=== PATIENT | male | born 1955 | race Caucasian/White ===

== ENCOUNTER 2017-06-18 12:07 | Inpatient (IN) | payer SELFPAY ==
[2017-06-18] VITALS (15 sets, daily range): BP systolic 96–143; BP diastolic 52–78; PULSE 85–110; RESP 6–30; TEMP 91.2–99.1; O2SAT 93–100
[~2017-06-18] VITALS: Ht 182.9 cm; Wt 77.3 kg
[2017-06-18] MEDS ORDERED: PROPOFOL 500 MG/50 ML INJ 50 ML ONE (12:11)
[2017-06-18] MEDS ORDERED: SODIUM CHLOR 0.9% 1000 ML INJ 1,000 ML IV SCH ×2 (12:17→12:26)
[2017-06-18] MEDS ORDERED: SODIUM PHOSPHATE INJ 15 MMOL in SODIUM CHLORIDE 0.9% INJ 100 ML IV PRN (12:30)
[2017-06-18] MEDS ORDERED: PROPOFOL 1000 MG/100 ML INJ 100 ML IV PRN ×2 (12:30→14:00)
[2017-06-18] MEDS ORDERED: POTASSIUM CHLOR 40 MEQ PREMIX 100 ML IV PRN (12:30)
[2017-06-18] MEDS ORDERED: SODIUM BICARBONATE 8.4% SOLN 50 MEQ/50 ML VIAL IV PUSH PRN ×2 (12:30)
[2017-06-18] MEDS ORDERED: ETOMIDATE 20 MG/10 ML VIAL IV PUSH ONE (12:30)
[2017-06-18] MEDS ORDERED: SODIUM CHLORIDE 0.9% FLUSH 10 ML FLUSH IV FLUSH PRN ×3 (12:30→17:00)
[2017-06-18] MEDS ORDERED: INSULIN HUMAN REGULAR 1,000 UNITS/10 ML VIAL IV PUSH ONE (12:30)
[2017-06-18] MEDS ORDERED: SUCCINYLCHOLINE CHLORIDE 100 MG/5 ML SYRINGE IV PUSH ONE (12:30)
[2017-06-18] MEDS ORDERED: SODIUM CHLOR 0.9% 1000 ML INJ 1,000 ML IV ONE (12:30)
[2017-06-18] MEDS ORDERED: POTASSIUM CHLOR 20 MEQ PREMIX 100 ML IV PRN ×6 (12:30)
--- NOTE | 2017-06-18 12:37 | PD ---
HPI Chief Complaint: Altered Mental Status Time Seen by Provider: 12:17 Travel History International Travel<30 days: No Contact w/Intl Traveler<30days: No Traveled to known affect area: No History of Present Illness HPI 62-year-old male was brought to the emergency room by EMS after he was found unresponsive this morning by his friend in the hotel room. Patient is from out of town and is here for the bike week. He has history of diabetes. When EMS arrived and checked his blood sugar the meter read high. They brought him unresponsive with GCS of 3. Vital signs were otherwise stable. Patient was in no condition to give any meaningful history. The bedside blood sugar in the emergency room read high as well. There is no family or friend currently with the patient. He was last seen normal last night. No known history of abnormal alcohol intake or illicit drugs. [facility] Past Medical History Narrative Medical List of his past medical, surgical, social and family history reviewed from the nursing note. Social History Tobacco Use: Yes Allergies-Medications (Allergen,Severity, Reaction): Coded Allergies: No Allergy Information Available (Unverified , 06/18/17) Comments Unknown Narrative Medication Unknown Review of Systems ROS Limitations: Unresponsive Except as stated in HPI: all other systems reviewed are Neg Physical Exam Exam Limitations: Altered Mental Status Narrative GENERAL: Unresponsive, significant SKIN: Focused skin assessment warm/dry. HEAD: Atraumatic. Normocephalic. EYES: Pupils equal and round, 4 mm equal and reactive to light. No scleral icterus. No injection or drainage. ENT: No nasal bleeding or discharge. Dry mucous membrane and tongue NECK: Trachea midline. No JVD. CARDIOVASCULAR: Regular rate and rhythm. No murmur appreciated. RESPIRATORY: No accessory muscle use. Tachypneic. Clear to auscultation. Breath sounds equal bilaterally. GASTROINTESTINAL: Abdomen soft, non-tender, nondistended. Hepatic and splenic margins not palpable. MUSCULOSKELETAL: No obvious deformities. No clubbing. No cyanosis. No edema. NEUROLOGICAL: GCS of 3 PSYCHIATRIC: Unable to assess Data Data Last Documented VS Orders Orders Propofol 500 Mg/50 Ml Inj (Diprivan 500 (06/18/17 12:11) Electrocardiogram (06/18/17 12:17) Ammonia (06/18/17 12:17) Complete Blood Count With Diff (06/18/17 12:17) Comprehensive Metabolic Panel (06/18/17 12:17) Creatine Kinase (Cpk) (06/18/17 12:17) Prothrombin Time / Inr (Pt) (06/18/17 12:17) Troponin I (06/18/17 12:17) Thyroid Stimulating Hormone (06/18/17 12:17) Urinalysis - C+S If Indicated (06/18/17 12:17) Lactic Acid Sepsis Protocol (06/18/17 12:17) Arterial Blood Gas (Abg) (06/18/17 12:17) Blood Culture (06/18/17 12:17) Chest, Single Ap (06/18/17 12:17) Ct Brain W/O Iv Contrast(Rout) (06/18/17 12:17) Blood Glucose (06/18/17 12:17) Ecg Monitoring (06/18/17 12:17) Iv Access Insert/Monitor (06/18/17 12:17) Oximetry (06/18/17 12:17) Sodium Chloride 0.9% Flush (Ns Flush) (06/18/17 12:30) Sodium Chlor 0.9% 1000 Ml Inj (Ns 1000 M (06/18/17 12:17) Drug Screen, Random Urine (06/18/17 12:17) Alcohol (Ethanol) (06/18/17 12:17) Tylenol (Acetaminophen) (06/18/17 12:17) Salicylates (Aspirin) (06/18/17 12:17) Sodium Chlor 0.9% 1000 Ml Inj (Ns 1000 M (06/18/17 12:30) Blood Gas Venous (Vbg) (06/18/17 12:17) Insulin Human Regular Inj (Novolin R Inj (06/18/17 12:30) Urinary Catheter Insert/Apply (06/18/17 12:19) ^ Orogastric Tube (06/18/17 12:19) Succinylcholine Inj (Quelicin Inj) (06/18/17 12:30) Etomidate Inj (Amidate Inj) (06/18/17 12:30) Propofol 1000 Mg/100 Ml Inj (Diprivan 10 (06/18/17 12:30) Insert Temp Sensing Thomson Cath (06/18/17 12:26) Childcare Administrator / Telemetry [id number] (06/18/17 12:26) ^ Insert Iv (06/18/17 12:26) Diet Npo (06/18/17 Lunch) Sodium Chlor 0.9% 1000 Ml Inj (Ns 1000 M (06/18/17 12:26) Sodium Chlor 0.9% 1000 Ml Inj (Ns 1000 M (06/18/17 12:26) Dext 5%-Nacl 0.9% 1000 Ml Inj (D5w-Ns 10 (06/18/17 12:26) Insulin Regular (Iv Infusion) (Novolin R (06/18/17 13:00) Potassium Chlor 40 Meq Premix (Kcl 40 Me (06/18/17 12:30) Potassium Chlor 40 Meq Premix (Kcl 40 Me (06/18/17 12:30) Potassium Chlor 20 Meq Premix (Kcl 20 Me (06/18/17 12:30) Potassium Chlor 20 Meq Premix (Kcl 20 Me (06/18/17 12:30) Potassium Chlor 20 Meq Premix (Kcl 20 Me (06/18/17 12:30) Potassium Chlor 20 Meq Premix (Kcl 20 Me (06/18/17 12:30) Potassium Chlor 20 Meq Premix (Kcl 20 Me (06/18/17 12:30) Potassium Chlor 20 Meq Premix (Kcl 20 Me (06/18/17 12:30) Sodium Bicarbonate 8.4% Inj (Sodium Bica (06/18/17 12:30) Sodium Bicarbonate 8.4% Inj (Sodium Bica (06/18/17 12:30) Hemoglobin (Hgb) A1c (06/18/17 12:26) Basic Metabolic Panel (Bmp) (06/18/17 17:26) Basic Metabolic Panel (Bmp) (06/18/17 23:26) Basic Metabolic Panel (Bmp) (06/19/17 05:26) Basic Metabolic Panel (Bmp) (06/19/17 11:26) Magnesium (Mg) (06/18/17 17:26) Magnesium (Mg) (06/18/17 23:26) Magnesium (Mg) (06/19/17 05:26) Magnesium (Mg) (06/19/17 11:26) Phosphorus (Po4) (06/18/17 17:26) Phosphorus (Po4) (06/18/17 23:26) Phosphorus (Po4) (06/19/17 05:26) Phosphorus (Po4) (06/19/17 11:26) Beta Hydroxybutyrate (Acetone) (06/18/17 23:26) Beta Hydroxybutyrate (Acetone) (06/19/17 11:26) Admit Order (Ed Use Only) (06/18/17 12:37) Protein Corrected Calcium(Pcc) (06/18/17 15:05) Labs Laboratory Tests Test 06/18/17 12:15 06/18/17 12:25 Blood Gas Puncture Site IV Blood Gas Patient Temperature 98.6 Blood Gas HCO3 3 mmol/L Blood Gas Base Excess -29.0 mmol/L Blood Gas Oxygen Saturation 85 % Arterial Blood pH 6.71 Arterial Blood Partial Pressure CO2 22 mmHg Arterial Blood Partial Pressure O2 72 mmHG Arterial Blood Oxygen Content 17.9 Vol % Arterial Blood Carboxyhemoglobin 0.9 % Arterial Blood Methemoglobin 1.3 % Venous Blood pH 6.71 Venous Blood Partial Pressure CO2 22 mmHg Venous Blood Partial Pressure O2 72 mmHg Venous Blood HCO3 3 mmol/L Venous Blood Oxygen Saturation 85 % Venous Blood Oxygen Content 17.9 Vol % Venous Blood Base Excess -29.0 mmol/L Blood Gas Hemoglobin 15.0 G/DL Oxygen Delivery Device BiPAP Blood Gas Liter Flow 15 L/M Blood Gas Ventilator Setting NR White Blood Count 41.0 TH/MM3 Red Blood Count 4.31 MIL/MM3 Hemoglobin 14.2 GM/DL Hematocrit 49.2 % Mean Corpuscular Volume 114.0 FL Mean Corpuscular Hemoglobin 32.9 PG Mean Corpuscular Hemoglobin Concent 28.9 % Red Cell Distribution Width 14.1 % Platelet Count 503 TH/MM3 Mean Platelet Volume 7.8 FL Neutrophils (%) (Auto) 74.8 % Lymphocytes (%) (Auto) 19.5 % Monocytes (%) (Auto) 5.0 % Eosinophils (%) (Auto) 0.3 % Basophils (%) (Auto) 0.4 % Neutrophils # (Auto) 30.6 TH/MM3 Lymphocytes # (Auto) 8.0 TH/MM3 Monocytes # (Auto) 2.0 TH/MM3 Eosinophils # (Auto) 0.1 TH/MM3 Basophils # (Auto) 0.2 TH/MM3 CBC Comment AUTO DIFF Differential Total Cells Counted 100 Neutrophils % (Manual) 68 % Band Neutrophils % 8 % Lymphocytes % 12 % Monocytes % 9 % Eosinophils % 2 % Basophils % 1 % Neutrophils # (Manual) 31.2 TH/MM3 Differential Comment FINAL DIFF MANUAL Platelet Estimate HIGH Platelet Morphology Comment NORMAL Prothrombin Time 11.4 SEC Prothromb Time International Ratio 1.1 RATIO Urine Color LIGHT-YELLOW Urine Turbidity CLEAR Urine pH 5.0 Urine Specific [place] 1.022 Urine Protein 30 mg/dL Urine Glucose (UA) 1000 mg/dL Urine Ketones 150 mg/dL Urine Occult Blood SMALL Urine Nitrite NEG Urine Bilirubin NEG Urine Urobilinogen LESS THAN 2.0 MG/DL Urine Leukocyte Esterase NEG Urine RBC 1 /hpf Urine WBC 1 /hpf Urine Bacteria RARE /hpf Urine Mucus FEW /lpf Microscopic Urinalysis Comment CATH-CULTURE IND Urine Random Creatinine 18.7 MG/DL Urine Random Sodium 45 MEQ/L Blood Urea Nitrogen 44 MG/DL Creatinine 2.46 MG/DL Random Glucose 1165 MG/DL Total Protein 6.9 GM/DL Albumin 3.9 GM/DL Calcium Level 8.0 MG/DL Alkaline Phosphatase 164 U/L Aspartate Amino Transf (AST/SGOT) 39 U/L Alanine Aminotransferase (ALT/SGPT) 56 U/L Total Bilirubin 0.4 MG/DL Sodium Level 127 MEQ/L Potassium Level 6.3 MEQ/L Chloride Level 89 MEQ/L Carbon Dioxide Level LESS THAN 5.0 MEQ/L Anion Gap 33 MEQ/L Estimat Glomerular Filtration Rate 27 ML/MIN Lactic Acid Level 4.5 mmol/L Ammonia 161 MCMOL/L Total Creatine Kinase 273 U/L Troponin I 0.04 NG/ML Thyroid Stimulating Hormone 3rd Gen 1.090 uIU/ML Salicylates Level 5.9 MG/DL Urine Opiates Screen NEG Acetaminophen Level LESS THAN 2.0 MCG/ML Urine Barbiturates Screen NEG Urine Amphetamines Screen NEG Urine Benzodiazepines Screen NEG Urine Cocaine Screen NEG Urine Cannabinoids Screen NEG Ethyl Alcohol Level LESS THAN 3 MG/DL B-Hydroxybutyrate 14.74 MMOL/L MDM Medical Decision Making Medical Screen Exam Complete: Yes Emergency Medical Condition: Yes Medical Record Reviewed: Yes Interpretation(s) Twelve-lead EKG was reviewed by me. Normal sinus rhythm, normal axis, intraventricular conduction delay, motion artifact. Heart rate of 86 bpm. Differential Diagnosis DKA with metabolic encephalopathy, intracranial bleed, metabolic encephalopathy Narrative Course 12:34 PM patient was intubated as per my decision. Please refer to my procedure note. Patient tolerated the intubation well. There was a VBG ordered immediately which showed significant metabolic acidosis with bicarb of 3. Besides giving patient IV fluid bolus and 10 units of regular insulin bolus I have ordered insulin drip and bicarb drip as per the DKA protocol. Patient will need to go to the ICU. Awaiting for the document improvement specialist to call back. 12:58 PM CBC shows significant leukocytosis. Based on that I have added Zosyn and vancomycin for possible sepsis. I just discussed over the phone his condition with patient's sister Yesenia. I have informed her patient's current condition being critical and diabetic coma. I discussed the case with the document improvement specialist was accepted the patient. Patient is over at CT scan a right now. As per the sister patient drinks a lot of alcohol. Chest x-ray has been reported as ET tube to be in good position. 1:25 PM awaiting for the bicarb drip to be started. Meanwhile ABG shows significant metabolic acidosis still with pH of 6.7. I have ordered 2 Amps of bicarb bolus at this point. Critical Care Narrative Aggregate critical care time was 60 minutes. Time to perform other separately billable procedures was not included in the critical care time. My time did not include minutes spent treating any other patients simultaneously or on activities that did not directly contribute to the patient's treatment. The services I provided to this patient were to treat and/or prevent clinically significant deterioration that could result in: Unresponsive, DKA, diabetic coma, sepsis, sepsis protocol, ventilator management I provided critical care services requiring my management, as noted below: Chart data review, documentation time, medication orders and management, vital sign assessments/reviewing monitor data, ordering and reviewing lab tests, ordering and interpreting/reviewing x-rays and diagnostic studies, care of the patient and discussion of the patient with the admitting physicians. Procedures Procedure Narrative After the risks and benefits were discussed the following procedure was performed: INTUBATION: The patient was put in optimal position for the procedure. Rapid sequence intubation was initiated by me using 20 milligrams of etomidate IV and 100 milligrams of succinylcholine IV. The patient was intubated with a 7.5 cuffed endotracheal tube. Tube placement was confirmed by visualization of the tube and balloon passing through the cords, capnometry and subsequent chest x-ray. Breath sounds were equal and well aerated bilaterally postintubation. No breath sounds over stomach. Patient tolerated procedure well. EKG Prior to Arrival: No Physician Communication Physician Communication Dr. Shields Diagnosis Primary Impression: Diabetic coma Additional Impressions: Sepsis Qualified Codes: A41.9 - Sepsis, unspecified organism Respiratory failure Qualified Codes: J96.00 - Acute respiratory failure, unspecified whether with hypoxia or hypercapnia Metabolic acidosis DKA (diabetic ketoacidoses) Qualified Codes: E10.11 - Type 1 diabetes mellitus with ketoacidosis with coma Admitting Information Admitting Physician Requests: it Guy Poole MD Jun 18, 2017 12:37
[2017-06-18 12:42] LABS: AUTOMATED NEUTROPHIL # 30.6 TH/MM3 (1.8-7.7); BASOPHIL # 0.2 TH/MM3 (0-0.2); BASOPHIL % 0.4 % (0.0-2.0); EOSINOPHIL # 0.1 TH/MM3 (0-0.4); EOSINOPHIL % 0.3 % (0.0-4.0); HEMATOCRIT 49.2 % (39.0-51.0); HEMOGLOBIN 14.2 GM/DL (13.0-17.0); LYMPH % 19.5 % (9.0-44.0); MEAN CORPUSCULAR HEMOGLOBIN 32.9 PG (27.0-34.0); MEAN PLATELET VOLUME 7.8 FL (7.0-11.0); NEUT % 74.8 % (16.0-70.0); PLATELET COUNT 503 TH/MM3 (150-450); RED BLOOD COUNT 4.31 MIL/MM3 (4.50-5.90); RED CELL DISTRIBUTION WIDTH 14.1 % (11.6-17.2)
[2017-06-18 12:43] LABS: MEAN CORPUSCULAR HGB CONC 28.9 % (32.0-36.0)
--- NOTE | 2017-06-18 12:46 | RADRPT ---
EXAM DATE/TIME: 06/18/2017 12:30 [facility] COMPARISON: No previous studies available for comparison. INDICATIONS : Post intubation MEDICAL HISTORY : Non - responsive SURGICAL HISTORY : Non-responsive ENCOUNTER: Initial ACUITY: 1 day PAIN SCORE: Non-responsive. LOCATION: chest FINDINGS: The endotracheal tube in satisfactory position. There is a nasogastric tube present. No pneumothorax is seen. The lungs are clear. The visualized osseous structures are intact. CONCLUSION: 1. ET tube and NG tube in good position. Kushal Aggarwal MD on June 18, 2017 at 12:43 Board Certified Radiologist. This report was verified electronically.
[2017-06-18] MEDS: SODIUM CHLOR 0.9% 1000 ML INJ 1,000 ML IV SCH ×2 (12:50→13:26)
[2017-06-18 12:52] LABS: INTERNATIONAL NORMALIZED RATIO 1.1 RATIO; PROTHROMBIN TIME - PATIENT 11.4 SEC (9.8-11.6)
[2017-06-18] MEDS ORDERED: PIPERACIL-TAZO 4.5 GM PREMIX 100 ML IV ONE (13:00)
[2017-06-18] MEDS ORDERED: VANCOMYCIN INJ 1,000 MG in SODIUM CHLOR 0.9% 250 ML INJ 250 ML IV ONE (13:00)
[2017-06-18 13:04] LABS: BANDS 8 % (0-6); BASOPHILS 1 % (0-2); LYMPHOCYTES 12 % (9-44); MONOCYTES 9 % (0-8); NEUTROPHIL # MANUAL DIFF 31.2 TH/MM3 (1.8-7.7); POLYS (SEG NEUTROPHILS) 68 % (16-70)
[2017-06-18 13:09] LABS: BACTERIA, URINE RARE /hpf; BILIRUBIN, URINE NEG (NEG); BLOOD, URINE SMALL (NEG); GLUCOSE,URINE 1000 mg/dL (NEG); KETONE, URINE 150 mg/dL (NEG); MUCUS URINE FEW /lpf (OCC); NITRITE,URINE NEG (NEG); URINE COLOR LIGHT-YELLOW (YELLW/STRAW); URINE LEUKOCYTE ESTERASE NEG (NEG)
--- NOTE | 2017-06-18 13:10 | RADRPT ---
EXAM DATE/TIME: 06/18/2017 12:58 [facility] COMPARISON: No previous studies available for comparison. INDICATIONS : Found unresponsive. RADIATION DOSE: 56.35 CTDIvol (mGy) MEDICAL HISTORY : Diabetes mellitus type 2. SURGICAL HISTORY : None. ENCOUNTER: Initial ACUITY: 1 day PAIN SCALE: Non-responsive LOCATION: cranial TECHNIQUE: Multiple contiguous axial images were obtained of the head. Using automated exposure control and adj ustment of the mA and/or kV according to patient size, radiation dose was kept as low as reasonably a chievable to obtain optimal diagnostic quality images. DICOM format image data is available electro nically for review and comparison. FINDINGS: CEREBRUM: The ventricles are normal for age. No evidence of midline shift, mass lesion, hemorrhage or acute in farction. No extra-axial fluid collections are seen. POSTERIOR FOSSA: The cerebellum and brainstem are intact. The 4th ventricle is midline. The cerebellopontine angle i s unremarkable. EXTRACRANIAL: The visualized portion of the orbits is intact. SKULL: The calvaria is intact. No evidence of skull fracture. CONCLUSION: 1. No acute intracranial abnormality. Kushal Aggarwal MD on June 18, 2017 at 13:07 Board Certified Radiologist. This report was verified electronically.
[2017-06-18] MEDS ORDERED: BISACODYL 10 MG SUPP RECTAL PRN (13:15)
[2017-06-18] MEDS ORDERED: SENNOSIDES 8.6 MG TAB PO PRN (13:15)
[2017-06-18] MEDS ORDERED: MAGNESIUM HYDROXIDE SUSP 30 ML CUP PO PRN (13:15)
[2017-06-18] MEDS ORDERED: MISCELLANEOUS NURSING INFORMATION XX SCH (13:15)
[2017-06-18] MEDS ORDERED: ONDANSETRON HCL 4 MG/2 ML VIAL IV PUSH PRN (13:15)
[2017-06-18] MEDS ORDERED: CHLORHEXIDINE GLUCONATE 2 % 1 PACK (2 CLOTHS) TOP PRN (13:15)
[2017-06-18] MEDS ORDERED: RESP: ALBUTEROL 2.5 MG/3 ML NEB (PRN) INH (13:15)
[2017-06-18] MEDS ORDERED: LACTULOSE SYRUP 20 GM/30 ML CUP PO PRN (13:15)
[2017-06-18 13:23] LABS: ACETAMINOPHEN LESS THAN 2.0 MCG/ML (10.0-30.0); ALBUMIN 3.9 GM/DL (3.4-5.0); ALKALINE PHOSPHATASE 164 U/L (45-117); ALT (GPT) 56 U/L (12-78); AST (GOT) 39 U/L (15-37); BICARBONATE LESS THAN 5.0 MEQ/L (21.0-32.0); BLOOD UREA NITROGEN 44 MG/DL (7-18); CHLORIDE 89 MEQ/L (98-107); CREATININE 2.46 MG/DL (0.60-1.30); GLOMERULAR FILTRATION RATE 27 ML/MIN (>89); SODIUM (NA) 127 MEQ/L (136-145); TOTAL BILIRUBIN ADULT 0.4 MG/DL (0.2-1.0); TOTAL PROTEIN 6.9 GM/DL (6.4-8.2); TROPONIN I 0.04 NG/ML (0.02-0.05)
--- NOTE | 2017-06-18 13:23 | HHI.HP ---
[facility] Service Critical Care Medicine Primary Care Physician Unknown Admission Diagnosis DKA, metabolic acidosis, metabolic encephalopathy Diagnosis: (1) Acute respiratory failure Diagnosis: Principal (2) Thrombocytosis Diagnosis: Secondary (3) Macrocytosis Diagnosis: Secondary (4) Increased ammonia level Diagnosis: Principal (5) Leukocytosis Diagnosis: Principal (6) Glycosuria Diagnosis: Secondary (7) Acute metabolic encephalopathy Diagnosis: Principal (8) Cystitis Diagnosis: Principal (9) Acute kidney injury Diagnosis: Principal (10) Hyperkalemia Diagnosis: Principal (11) Hyponatremia Diagnosis: Secondary (12) Hyperglycemia due to type 2 diabetes mellitus Diagnosis: Principal Chief Complaint: Found in hotel room by friend, unresponsive Travel History International Travel<30 Days: No Contact w/Intl Traveler <30 Da: No Traveled to Known Affected Are: No History of Present Illness 62-year-old male. Date of admission 06/18/2017. Past medical history includes diabetes according to friend per ER physician who is currently unavailable. This individual presented to the emergency room by EMS after he was found unresponsive this morning by his friend in the hotel room. When EMS arrived and checked his blood sugar the meter read high. They brought him unresponsive with GCS of 3. Vital signs were otherwise stable. Patient was in no condition to give any meaningful history. The bedside blood sugar in the emergency room read high as well. There is no family or friend currently with the patient. He was last seen normal last night. Patient received 20 mg etomidate and 100 mg succinylcholine was extubated with a 7.[address] brain revealed no acute intracranial findings. His white blood cell count is 41,000. He has a macrocytosis on his lab draws ammonia levels 161. Received vancomycin and piperacillin/tazobactam in the emergency department. He was started on lactulose 30 cc 4 times daily. EKG revealed normal sinus rhythm 83. Incomplete right bundle branch block. Troponin is currently pending. Creatinine was 2.4. Potassium is 6.3. Sodium was 127. Troponin 0 0.04. TSH 1.19. Patient received 10 mg insulin R and started on a drip currently 8 units an hour. 3 L normal saline wide open. Currently normal saline at 250 cc now. We are asked to admit. Review of Systems ROS Limitations: Intubated Past Family Social History Allergies: Coded Allergies: No Allergy Information Available (Unverified , 06/18/17) Past Medical History Diabetes mellitus Past Surgical History Unknown Reported Medications Unknown Active Ordered Medications Reviewed in EMR Family History Unknown Social History Unknown Physical Exam Vital Signs Vital Signs Date Time Temp Pulse Resp B/P (MAP) Pulse Ox O2 Delivery O2 Flow Rate FiO2 06/18/17 12:16 92 143/78 (99) 06/18/17 12:13 100 6 143/78 (99) Non-Rebreather 06/18/17 12:11 100 Physical Exam GENERAL: 62-year-old male currently orotracheally intubated SKIN: Warm and dry. Face and upper extremity are sunburned HEAD: Atraumatic. Normocephalic. EYES: Pupils equal and round about 4 mm bilaterally and reactive. No scleral icterus. No injection or drainage. ENT: No nasal bleeding or discharge. Mucous membranes pink and moist. NECK: Trachea midline. No JVD. CARDIOVASCULAR: Regular rate and rhythm. S1, S2. No S4. No murmur RESPIRATORY: Tachypneic, using accessory muscles. No wheezing appreciated. GASTROINTESTINAL: Abdomen soft, non-tender, nondistended. Hypoactive bowel sounds are appreciated MUSCULOSKELETAL: Extremities without significant peripheral edema. No obvious deformities. NEUROLOGICAL: Cranial nerves II through XII grossly intact. Positive gag and corneal reflex. Positive cough. Currently without withdrawing to pain. Laboratory Laboratory Tests Test 06/18/17 12:15 06/18/17 12:25 Blood Gas Puncture Site IV Blood Gas Patient Temperature 98.6 Blood Gas HCO3 3 Blood Gas Base Excess -29.0 Blood Gas Oxygen Saturation 85 Arterial Blood pH 6.71 Arterial Blood Partial Pressure CO2 22 Arterial Blood Partial Pressure O2 72 Arterial Blood Oxygen Content 17.9 Arterial Blood Carboxyhemoglobin 0.9 Arterial Blood Methemoglobin 1.3 Venous Blood pH 6.71 Venous Blood Partial Pressure CO2 22 Venous Blood Partial Pressure O2 72 Venous Blood HCO3 3 Venous Blood Oxygen Saturation 85 Venous Blood Oxygen Content 17.9 Venous Blood Base Excess -29.0 Blood Gas Hemoglobin 15.0 Oxygen Delivery Device BiPAP Blood Gas Liter Flow 15 Blood Gas Ventilator Setting NR White Blood Count 41.0 Red Blood Count 4.31 Hemoglobin 14.2 Hematocrit 49.2 Mean Corpuscular Volume 114.0 Mean Corpuscular Hemoglobin 32.9 Mean Corpuscular Hemoglobin Concent 28.9 Red Cell Distribution Width 14.1 Platelet Count 503 Mean Platelet Volume 7.8 Neutrophils (%) (Auto) 74.8 Lymphocytes (%) (Auto) 19.5 Monocytes (%) (Auto) 5.0 Eosinophils (%) (Auto) 0.3 Basophils (%) (Auto) 0.4 Neutrophils # (Auto) 30.6 Lymphocytes # (Auto) 8.0 Monocytes # (Auto) 2.0 Eosinophils # (Auto) 0.1 Basophils # (Auto) 0.2 CBC Comment AUTO DIFF Differential Total Cells Counted 100 Neutrophils % (Manual) 68 Band Neutrophils % 8 Lymphocytes % 12 Monocytes % 9 Eosinophils % 2 Basophils % 1 Neutrophils # (Manual) 31.2 Differential Comment FINAL DIFF MANUAL Platelet Estimate HIGH Platelet Morphology Comment NORMAL Prothrombin Time 11.4 Prothromb Time International Ratio 1.1 Urine Color LIGHT-YELLOW Urine Turbidity CLEAR Urine pH 5.0 Urine Specific [place] 1.022 Urine Protein 30 Urine Glucose (UA) 1000 Urine Ketones 150 Urine Occult Blood SMALL Urine Nitrite NEG Urine Bilirubin NEG Urine Urobilinogen LESS THAN 2.0 Urine Leukocyte Esterase NEG Urine RBC 1 Urine WBC 1 Urine Bacteria RARE Urine Mucus FEW Microscopic Urinalysis Comment CATH-CULTURE IND Ammonia 161 Salicylates Level 5.9 Date/Time Source Procedure Growth Status 06/18/17 12:25 Blood Peripheral Aerobic Blood Culture Pending Received 06/18/17 12:25 Blood Peripheral Anaerobic Blood Culture Pending Received 06/18/17 12:25 Urine Clean Catch Urine Culture Pending Received Result Diagram: 06/18/[address] brain -no acute intracranial findings Chest x-ray -ET tube high with advanced 2 cm. NG tube in place. No acute pulmonary findings. Septic Shock Reassessment Septic shock perfusion: reassessment completed Caprini VTE Risk Assessment Caprini VTE Risk Assessment: Mod/High Risk (score >= 2) Caprini Risk Assessment Model Point Value = 1 Point Value = 2 Point Value = 3 Point Value = 5 Age 41-60 Minor surgery BMI > 25 kg/m2 Swollen legs Varicose veins or History of unexplained or recurrent spontaneous Oral contraceptives or hormone replacement Sepsis (< 1 month) Serious lung disease, including pneumonia (< 1 month) Abnormal pulmonary function Acute myocardial infarction Congestive heart failure (< 1 month) History of inflammatory bowel disease Medical patient at bed rest Age 61-74 Arthroscopic surgery Major open surgery (> 45 min) Laparoscopic surgery (> 45 min) Malignancy Confined to bed (> 72 hours) Immobilizing plaster cast Central venous access Age >= 75 History of VTE Family history of VTE Factor V Leiden Prothrombin [id number] Lupus anticoagulant Anticardiolipin antibodies Elevated serum homocysteine Heparin-induced thrombocytopenia Other congenital or acquired thrombophilia Stroke (< 1 month) Elective arthroplasty Hip, pelvis, or leg fracture Acute spinal cord injury (< 1 month) Prophylaxis Regimen Total Risk Factor Score Risk Level Prophylaxis Regimen 0-1 Low Early ambulation 2 Moderate Order ONE of the following: *Sequential Compression Device (SCD) *Heparin 5000 units SQ BID 3-4 Higher Order ONE of the following medications: *Heparin 5000 units SQ TID *Enoxaparin/Lovenox 40 mg SQ daily (WT < 150 kg, CrCl > 30 mL/min) *Enoxaparin/Lovenox 30 mg SQ daily (WT < 150 kg, CrCl > 10-29 mL/min) *Enoxaparin/Lovenox 30 mg SQ BID (WT < 150 kg, CrCl > 30 mL/min) AND/OR *Sequential Compression Device (SCD) 5 or more Highest Order ONE of the following medications: *Heparin 5000 units SQ TID (Preferred with Epidurals) *Enoxaparin/Lovenox 40 mg SQ daily (WT < 150 kg, CrCl > 30 mL/min) *Enoxaparin/Lovenox 30 mg SQ daily (WT < 150 kg, CrCl > 10-29 mL/min) *Enoxaparin/Lovenox 30 mg SQ BID (WT < 150 kg, CrCl > 30 mL/min) AND *Sequential Compression Device (SCD) Assessment and Plan Assessment and Plan Neuro/Psych: Acute toxic metabolic encephalopathy secondary hyperglycemia and elevated ammonia Currently on propofol/fentanyl drips for sedation/analgesia while intubated Goal of RA SS of -[address] brain 06/18 revealed no acute intracranial findings Ammonia level is 161. See GI Thiamine 100 mg IV daily, folate 1 mg daily multiple tablet daily with macrocytosis CV: Hypertension Currently on normal saline at 250 cc an hour Currently not requiring vasopressors and/or antihypertensives Lactate is currently pending Resp: Acute hypoxemic respiratory failure PRVC 30/500/0.75/5/100 Ventilator bundle Albuterol/ipratropium aerosols every 6 hours with albuterol aerosols every 2 hours needed for dyspnea Spontaneous breathing trials when clinically indicated Chest x-ray post intubation reveals no acute cardiopulmonary findings GI: Hyperammonia Elevated AST N.p.o. NGT to LIWS Famotidine for GI prophylaxis Docusate sodium/senna 1 tablet twice daily for bowel regimen Lactulose 30 cc every 6 hours for elevated ammonia level Liver ultrasound ordered. Hepatitis panel ordered. CPK ordered : Thomson catheter has been placed for accurate I's and O's in a critically ill patient Endo: Hyperglycemia Received 10 minutes to our insulin ED. Currently on insulin drip at 8 units an hour. Goal increased blood sugar by 75-100 every hour BMP, mag and proximal every 6 hours with acetone every 12 hours Attempt to reconcile home medications Continue normal saline at 250 cc an hour. Transition to D5 one half normal saline at 200 cc an hour once acetone cleared Renal: Glycosuria Proteinuria Acute kidney injury Patient currently on aggressive crystalloid resuscitation Check urine eosinophils and electrolytes Heme: Leukocytosis neutrophil predominant Macrocytosis Thrombocytosis Monitor CBC daily. Follow trends ID: Cystitis Currently piperacillin/tazobactam day #1 Received 1 dose of vancomycin ED Blood cultures 2, urine culture 06/18 pending FEN: Pseudohyponatremia Hyperkalemia Replace electrolytes as clinically indicated Recheck potassium in 6 hours. Along with magnesium and phosphorus MSK: PT evaluate and treat Access -Utilize peripheral IV. Central line if indicated Prophylaxis -GI -famotidine -DVT -SCD/heparin subcu Critical Care: The total critical care time was 35 minutes. Time to perform other separately billable procedures was not included in the critical care time. Code Status Full code Discussed Condition With ED physician Dr. Poole. No other family or friends available. Care plan discussed and all questions answered. Problem Qualifiers (1) Acute respiratory failure: Qualified Codes: J96.00 - Acute respiratory failure, unspecified whether with hypoxia or hypercapnia (2) Leukocytosis: Qualified Codes: D72.828 - Other elevated white blood cell count (3) Hyperglycemia due to type 2 diabetes mellitus: Qualified Codes: E11.65 - Type 2 diabetes mellitus with hyperglycemia Kike Shields MD Jun 18, 2017 13:23
[2017-06-18] MEDS ORDERED: SODIUM BICARBONATE 8.4% INJ 50 MEQ/50 ML SYR IV PUSH ONE ×3 (13:30→17:00)
[2017-06-18] MEDS ORDERED: MIDAZOLAM HCL 2 MG/2 ML VIAL IV PUSH ONE (13:30)
[2017-06-18 13:37] LABS: GLUCOSE,RANDOM 1165 MG/DL (74-106); LACTIC ACID SEPSIS PROTOCOL 4.5 mmol/L (0.4-2.0)
[2017-06-18] MEDS ORDERED: RASS Change Order XX ONE ×2 (13:45→16:30)
[2017-06-18] MEDS: PIPERACIL-TAZO 2.25 GM PREMIX 50 ML IV SCH ×3 (13:45→20:49)
[2017-06-18] MEDS ORDERED: MULTIVITAMIN TAB PO ONE (13:45)
[2017-06-18] MEDS ORDERED: FOLIC ACID 1 MG TAB PO ONE (13:45)
[2017-06-18] MEDS: INSULIN REGULAR (IV INFUSION) 100 UNITS in SODIUM CHLORIDE 0.9% INJ 99 ML IV PRN (13:47)
[2017-06-18] MEDS ORDERED: fentaNYL DRIP 250 ML IV PRN ×2 (14:00→16:30)
[2017-06-18] MEDS ORDERED: THIAMINE INJ 100 MG in SODIUM CHLORIDE 0.9% INJ 100 ML IV ONE (14:00)
--- NOTE | 2017-06-18 14:22 | RADRPT ---
EXAM DATE/TIME: 06/18/2017 13:50 [facility] COMPARISON: No previous studies available for comparison. INDICATIONS : Enlarged liver. MEDICAL HISTORY : Diabetes. Tobacco use. SURGICAL HISTORY : None. ENCOUNTER: Initial ACUITY: 1 day PAIN SCORE: Nonresponsive. LOCATION: Bilateral upper quadrant MEASUREMENTS: LIVER: 16.9 cm length COMMON DUCT: 5 mm RIGHT KIDNEY: 13.1 x 6.1 x 5.4 cm SPLEEN: 11.6 cm length FINDINGS: LIVER: Normal echotexture without focal lesion or ductal dilatation. COMMON DUCT: No intraluminal mass or stone visualized. GALLBLADDER: Contains no stones, demonstrates no wall thickening or pericholecystic fluid. PANCREAS: The visualized portions are within normal limits. KIDNEY: Right kidney is normal in size and echogenicity without evidence of hydronephrosis or concerning mass . The left kidney demonstrates 2 large cysts with the largest cyst identified within the lower pole m easuring 9.0 x 9.7 x 6.5 cm. There is a smaller well-circumscribed cyst at the midpole measuring 5.6 cm in greatest dimension. No evidence of hydronephrosis. SPLEEN: No focal lesion. CONCLUSION: The liver is normal in size and echogenicity. No evidence of mass. There are large but benign-appeari ng left renal cyst present.. Elizabeth Javier MD on June 18, 2017 at 14:17 Board Certified Radiologist. This report was verified electronically.
--- NOTE | 2017-06-18 15:31 | PD.PROCEDR ---
Procedure Note Procedure DATE: 06/18/17 PROCEDURE: Right femoral arterial catheter placement INDICATION: Hemodynamic access DETAILS OF PROCEDURE The patient was placed in supine position. The skin was cleansed with Chloraprep. Additional barrier precautions included large sterile drape, sterile gloves, sterile gown, face mask, and hat. 1% lidocaine was used for local anesthesia. Under direct ultrasound guidance and on the initial attempt, the artery was accessed with an introducer needle. The guide wire was advanced. Using Seldinger technique 20 gauge arterial catheter was placed. The guide wire was removed. The catheter was connected to a transducer line and flushed with saline. The video monitor displayed normal arterial wave forms. The catheter was secured with 2-0 silk. A sterile dressing with antibiotic disc was applied. ESTIMATED BLOOD LOSS: minimal COMPLICATIONS: None Kike Shields MD Jun 18, 2017 15:31
[2017-06-18] MEDS ORDERED: SODIUM CHLOR 0.45% 1000 ML INJ 1,000 ML IV ONE (15:45)
[2017-06-18 16:29] LABS: BICARBONATE 5.1 MEQ/L (21.0-32.0); CALCIUM 6.9 MG/DL (8.5-10.1); CREATININE 2.26 MG/DL (0.60-1.30); MAGNESIUM 2.5 MG/DL (1.5-2.5); PHOSPHORUS 7.8 MG/DL (2.5-4.9)
[2017-06-18] MEDS ORDERED: TERBUTALINE INJ 1 MG/ML AMP SQ PRN (16:30)
[2017-06-18 16:48] LABS: CALCIUM-PROTEIN CORRECTED 7.5 MG/DL (8.5-10.1)
--- NOTE | 2017-06-18 16:50 | PD.PROCEDR ---
Central Line Procedure REASON FOR PROCEDURE Central venous access PROCEDURE PERFORMED Central line placement: Left IJ CVL CONSENT Informed consent for procedure was not obtained and considered emergent due to hemodynamic instability. The risks and benefits of the procedure were discussed with RN at bedside to include but limited to bleeding, clot formation , infection, and even . ANESTHESIA Local injection of 1% Lidocaine DESCRIPTION OF THE PROCEDURE The patient was placed in supine, mild Trendelenburg position. The area was exposed and cleansed with ChloraPrep, times two. Large sterile drape was used to cover the patient, with the site exposed, under sterile conditions including cap, face mask, sterile gown, and sterile gloves. On single attempt, the introducer needle was inserted with negative pressure in syringe and venous flash was obtained. The guide wire was then advanced without any restriction and the needle was removed. The dilator was used without any complications. Using Seldinger technique the antibiotic coated triple lumen catheter was advanced over the guide wire to a depth of 20 centimeters. The guide wire was removed. All ports were aspirated with dark venous blood return and flushed easily with sterile saline. All ports were capped. Antibiotic disc was placed around central line at puncture site. The central line was secured to the skin with two interrupted 2.0 silk sutures. The area was bandaged with sterile see- through central line bandage. RADIOLOGICAL DATA Ultrasound guidance was used to locate left internal jugular vein. Doppler/ color flow was used to confirm venous flow. COMPLICATIONS: No apparent complications ESTIMATED BLOOD LOSS: Less than 1 cc. Kike Shields MD Jun 18, 2017 16:50
[2017-06-18] MEDS: PHENYLEPHRINE INJ 160 MG in DEXTROSE 5% IN WATE 500 ML INJ 484 ML IV PRN ×2 (17:03)
[2017-06-18] MEDS: MIDAZOLAM 100 MG/100 ML INJ 100 ML IV PRN (17:07)
--- NOTE | 2017-06-18 17:24 | RADRPT ---
EXAM DATE/TIME: 06/18/2017 17:05 [facility] COMPARISON: CHEST SINGLE AP, June 18, 2017, 12:30. INDICATIONS : Central line placement. MEDICAL HISTORY : Diabetes. Tobacco use. SURGICAL HISTORY : None. ENCOUNTER: Subsequent ACUITY: 1 day PAIN SCORE: Non-responsive. LOCATION: Bilateral chest FINDINGS: The heart is normal in size. The mediastinal contours are within normal limits. The lungs are clear. Air graft the endotracheal tube and left jugular central line appear in satisfactory position. Air gr aft the osseous structures are grossly intact. CONCLUSION: 1. Left jugular central line in satisfactory position with no evidence of pneumothorax. 2. Endotracheal tube and nasogastric tube in satisfactory position. Kushal Aggarwal MD on June 18, 2017 at 17:21 Board Certified Radiologist. This report was verified electronically.
[2017-06-18 17:52] LABS: TROPONIN I 0.09 NG/ML (0.02-0.05)
[2017-06-18] MEDS ORDERED: CALCIUM GLUCONATE INJ 1 GM in SODIUM CHLORIDE 0.9% INJ 100 ML IV ONE (18:00)
[2017-06-18] MEDS: ARTIFICIAL TEARS OPTH SOLN 15 ML BTL EACH EYE SCH (18:00)
[2017-06-18] MEDS ORDERED: CHLORHEXIDINE 0.12% (ORAL KIT) 15 ML CUP MT SCH (20:00)
[2017-06-18] MEDS: RESP: ALBUTEROL 2.5 MG/IPRATROPIUM 0.5 MG NEB (SCH) INH ×2 (20:23→23:30)
[2017-06-18] MEDS: SODIUM CHLORIDE 0.9% FLUSH 10 ML FLUSH IV FLUSH SCH ×2 (20:47)
[2017-06-18] MEDS: FAMOTIDINE 20 MG/2 ML VIAL IV PUSH SCH (20:48)
[2017-06-18] MEDS: LACTULOSE SYRUP 20 GM/30 ML CUP PO SCH (20:48)
[2017-06-18] MEDS: DOCUSATE SODIUM 50 MG/SENNA 8.6 MG TAB PO SCH (20:49)
[2017-06-18] MEDS: CHLORHEXIDINE 0.12% (ORAL KIT) 15 ML CUP MT SCH (20:51)
[2017-06-18] MEDS: SODIUM CHLOR 0.45% 1000 ML INJ 1,000 ML IV SCH (20:53)
[2017-06-18] MEDS: CHLORHEXIDINE GLUCONATE 2 % 1 PACK (2 CLOTHS) TOP SCH (20:53)
[2017-06-18] MEDS: DEXT 5%-NACL 0.9% 1000 ML INJ 1,000 ML IV SCH (22:26)
[2017-06-19] VITALS (21 sets, daily range): BP systolic 102–135; BP diastolic 56–66; PULSE 68–81; RESP 16; TEMP 97.7–99; O2SAT 100
[2017-06-19] MEDS: INSULIN REGULAR (IV INFUSION) 100 UNITS in SODIUM CHLORIDE 0.9% INJ 99 ML IV PRN ×3 (00:29→09:33)
[2017-06-19] MEDS: SODIUM CHLOR 0.45% 1000 ML INJ 1,000 ML IV SCH ×2 (01:42→05:46)
[2017-06-19] MEDS: PIPERACIL-TAZO 2.25 GM PREMIX 50 ML IV SCH ×4 (01:45→19:54)
[2017-06-19 02:15] LABS: BLOOD UREA NITROGEN 38 MG/DL (7-18); CALCIUM 7.6 MG/DL (8.5-10.1); CHLORIDE 113 MEQ/L (98-107); CREATININE 2.09 MG/DL (0.60-1.30); GLOMERULAR FILTRATION RATE 32 ML/MIN (>89); GLUCOSE,RANDOM 276 MG/DL (74-106); PHOSPHORUS 0.5 MG/DL (2.5-4.9); SODIUM (NA) 147 MEQ/L (136-145)
[2017-06-19] MEDS: POTASSIUM CHLOR 40 MEQ PREMIX 100 ML IV PRN ×2 (02:23→03:58)
[2017-06-19] MEDS: MIDAZOLAM 100 MG/100 ML INJ 100 ML IV PRN ×3 (02:25→13:39)
[2017-06-19] MEDS: DEXT 5%-NACL 0.9% 1000 ML INJ 1,000 ML IV SCH (03:26)
[2017-06-19] MEDS: RESP: ALBUTEROL 2.5 MG/IPRATROPIUM 0.5 MG NEB (SCH) INH ×6 (04:01→23:28)
[2017-06-19 06:06] LABS: AUTOMATED NEUTROPHIL # 16.1 TH/MM3 (1.8-7.7); BASOPHIL % 0.2 % (0.0-2.0); HEMATOCRIT 35.5 % (39.0-51.0); HEMOGLOBIN 12.8 GM/DL (13.0-17.0); LYMPHOCYTE # 0.8 TH/MM3 (1.0-4.8); MEAN CELL VOLUME 91.9 FL (80.0-100.0); MEAN CORPUSCULAR HGB CONC 35.9 % (32.0-36.0); MEAN PLATELET VOLUME 6.9 FL (7.0-11.0); MONOCYTE # 2.1 TH/MM3 (0-0.9); NEUT % 84.8 % (16.0-70.0); PLATELET COUNT 291 TH/MM3 (150-450); RED BLOOD COUNT 3.87 MIL/MM3 (4.50-5.90); RED CELL DISTRIBUTION WIDTH 12.6 % (11.6-17.2)
[2017-06-19 06:18] LABS: BICARBONATE 20.7 MEQ/L (21.0-32.0); CREATININE 2.24 MG/DL (0.60-1.30); PHOSPHORUS 0.4 MG/DL (2.5-4.9)
[2017-06-19 07:05] LABS: CREATININE, RANDOM URINE 18.7 MG/DL
[2017-06-19] MEDS ORDERED: SODIUM PHOSPHATE INJ 30 MMOL in SODIUM CHLOR 0.9% 250 ML INJ 250 ML IV ONE (07:15)
--- NOTE | 2017-06-19 07:16 | HHI.CCPN ---
Subjective Remarks/Hospital Course 62-year-old male. Date of admission 06/18/2017. Past medical history includes diabetes according to friend per ER physician who is currently unavailable. This individual presented to the emergency room by EMS after he was found unresponsive this morning by his friend in the hotel room. When EMS arrived and checked his blood sugar the meter read high. They brought him unresponsive with GCS of 3. Vital signs were otherwise stable. Patient was in no condition to give any meaningful history. The bedside blood sugar in the emergency room read high as well. There is no family or friend currently with the patient. He was last seen normal last night. Patient received 20 mg etomidate and 100 mg succinylcholine was extubated with a 7.[address] brain revealed no acute intracranial findings. His white blood cell count is 41,000. He has a macrocytosis on his lab draws ammonia levels 161. Received vancomycin and piperacillin/tazobactam in the emergency department. He was started on lactulose 30 cc 4 times daily. EKG revealed normal sinus rhythm 83. Incomplete right bundle branch block. Troponin is currently pending. Creatinine was 2.4. Potassium is 6.3. Sodium was 127. Troponin 0 0.04. TSH 1.19. Patient received 10 mg insulin R and started on a drip currently 8 units an hour. 3 L normal saline wide open. Currently normal saline at 250 cc now. We are asked to admit. Subjective 06/19: Afebrile. Currently resting in bed in no acute distress on sedation. Decreased urine output. Replacing phosphorus this a.m. No bowel movement. Will start on tube feedings with Glucerna 1.5 Objective Vital Signs Date Time Temp Pulse Resp B/P (MAP) Pulse Ox O2 Delivery O2 Flow Rate FiO2 06/19/17 06:40 30 06/19/17 06:00 80 06/19/17 06:00 127/69 06/18/17 23:31 100 06/18/17 20:00 99.1 28 06/18/17 14:12 Ventilator Intake and Output 06/19/17 06/19/17 06/20/17 08:00 16:00 00:00 Intake Total 3467 ml Output Total 1200 ml Balance 2267 ml Result Diagram: 06/19/17 0525 06/19/17 0525 Other Results Microbiology Date/Time Source Procedure Growth Status 06/18/17 12:25 Blood Peripheral Aerobic Blood Culture Pending Received 06/18/17 12:25 Blood Peripheral Anaerobic Blood Culture Pending Received 06/18/17 15:47 Nasal Washing Influenza Types A,B Antigen (MOHAMUD) - Final NEGATIVE FOR FLU A AND B ANTIGEN.... Complete 06/18/17 12:25 Urine Catheterized Urine Legionella Antigen Pending Received 06/18/17 12:25 Urine Catheterized Urine Streptococcus pneumoniae Antigen (M Pending Received Imaging Last Impressions Chest X-Ray 06/18/17 1648 Signed Impressions: Service Date/Time: Sunday, June 18, 2017 17:05 - CONCLUSION: 1. Left jugular central line in satisfactory position with no evidence of pneumothorax. 2. Endotracheal tube and nasogastric tube in satisfactory position. Kushal Aggarwal MD Head CT 06/18/17 1217 Signed Impressions: Service Date/Time: Sunday, June 18, 2017 12:58 - CONCLUSION: 1. No acute intracranial abnormality. Kushal Aggarwal MD Liver Ultrasound 06/18/17 0000 Signed Impressions: Service Date/Time: Sunday, June 18, 2017 13:50 - CONCLUSION: The liver is normal in size and echogenicity. No evidence of mass. There are large but benign-appearing left renal cyst present.. Elizabeth Javier MD Objective Remarks GENERAL: 62-year-old male currently orotracheally intubated SKIN: Warm and dry. Face and upper extremity are sunburned HEAD: Atraumatic. Normocephalic. EYES: Pupils equal and round about 4 mm bilaterally and reactive. No scleral icterus. No injection or drainage. ENT: No nasal bleeding or discharge. Mucous membranes pink and moist. NECK: Trachea midline. No JVD. Left IJ is clean dry and intact CARDIOVASCULAR: Regular rate and rhythm. S1, S2. No S4. No murmur RESPIRATORY: Tachypneic, using accessory muscles. No wheezing appreciated. GASTROINTESTINAL: Abdomen soft, non-tender, nondistended. Hypoactive bowel sounds are appreciated MUSCULOSKELETAL: Extremities without significant peripheral edema. No obvious deformities. Right femoral arterial line is clean dry and intact NEUROLOGICAL: Cranial nerves II through XII grossly intact. Positive gag and corneal reflex. Positive cough. Withdraws to pain. Moves all 4 extremities on sedation vacation but not following commands. Urinary Catheter: Yes Assessment to: Continue Thomson insert reason: Prolonged Immobilization Vascular Central Line Catheter: Yes Assessment to: Continue Date of Insertion: Jun 18, 2017 Line: Central Venous Catheter Side: Left Location: Internal, Jugular A/P Assessment and Plan Neuro/Psych: Acute toxic metabolic encephalopathy secondary hyperglycemia and elevated ammonia Currently on midazolam drip at 10 mg an hour l/fentanyl drips at 100 mg an hour for sedation/analgesia while intubated Goal of RASS of -[address] brain 06/18 revealed no acute intracranial findings Ammonia level is 161 on admission currently 36. See gastroenterology section Thiamine 100 mg IV daily, folate 1 mg daily multiple tablet daily with macrocytosis CV: History of hypertension Lactic acidosis Hypotension -likely volume Elevated troponin likely type II non-STEMI due to demand ischemia Currently on phenylephrine drip at 80 mg/min to maintain mean arterial pressure greater than equal to 65 Currently on D5 one quarter normal saline 250 cc an hour Currently not requiring vasopressors and/or antihypertensives Lactate is currently 2.3 Repeat troponin. EKG. 2D echocardiogram routine ordered Resp: Acute hypoxemic respiratory failure [facility] 16/500/04/08/29 Ventilator bundle Albuterol/ipratropium aerosols every 4 hours with albuterol aerosols every 2 hours needed for dyspnea Spontaneous breathing trials when clinically indicated Chest x-ray post intubation reveals no acute cardiopulmonary findings GI: Hyperammonia Elevated AST Start Glucerna 1.5 goal 50 cc an hour Famotidine 20 mg daily for GI prophylaxis Docusate sodium/senna 1 tablet twice daily for bowel regimen Lactulose 30 cc every 6 hours for elevated ammonia level. Currently 36 Liver ultrasound revealed no acute finding. Hepatitis panel negative. : Thomson catheter has been placed for accurate I's and O's in a critically ill patient Endo: Diabetic ketoacidosis Hyperglycemia Received 10 units are insulin ED. Currently on insulin drip at 12.5 units an hour. Goal decrease blood sugar by 75-100 every hour BMP, mag and phosphorus every 6 hours with acetone every 12 hours Attempt to reconcile home medications Continue D5 one quarter normal saline at 250 cc an hour. Renal: Glycosuria Proteinuria Acute kidney injury Patient currently on aggressive crystalloid resuscitation Negative urine eosinophils and prerenal indices urine electrolytes Heme: Leukocytosis neutrophil predominant Normocytic anemia Monitor CBC daily. Follow trends Macrocytosis and thrombocytosis have resolved ID: Cystitis Currently piperacillin/tazobactam day #2 Received 1 dose of vancomycin ED Blood cultures 2, urine culture 06/18 pending FEN: Hypernatremia Hypophosphatemia Replace electrolytes as clinically indicated 30 mmol sodium phosphorus IV 1 now. Recheck this afternoon Currently on D5 one quarter normal saline at 250 cc an hour with free water 100 cc every 4 hours MSK: PT evaluate and treat Access -Utilize peripheral IV. Central line if indicated Prophylaxis -GI -famotidine -DVT -SCD/heparin subcu Critical Care: The total critical care time was 35 minutes. Time to perform other separately billable procedures was not included in the critical care time. Discussed with sister Yane Barrientos [phone]. Patient is a known diabetic previously intubated with a similar episode when newly diagnosed. Patient is noncompliant, consumes alcohol. Patient also had a non-STEMI last admission to ICU. We will wean sedation today and attempt to wean off insulin drip as well. Kike Shields MD Jun 19, 2017 07:16
[2017-06-19] MEDS: DEXTROSE 5%-NACL 0.225% INJ 1,000 ML IV SCH ×2 (07:22→14:38)
[2017-06-19] MEDS: ARTIFICIAL TEARS OPTH SOLN 15 ML BTL EACH EYE SCH ×3 (09:00→18:00)
[2017-06-19] MEDS ORDERED: LACTATED RINGER'S 1000 ML INJ 1,000 ML IV ONE (09:00)
[2017-06-19] MEDS: FAMOTIDINE 20 MG/2 ML VIAL IV PUSH SCH ×2 (09:22→19:59)
[2017-06-19] MEDS: MULTIVITAMIN TAB PO SCH (09:22)
[2017-06-19] MEDS: SODIUM CHLORIDE 0.9% FLUSH 10 ML FLUSH IV FLUSH SCH ×3 (09:22→19:59)
[2017-06-19] MEDS: FOLIC ACID 1 MG TAB PO SCH (09:22)
[2017-06-19] MEDS: DOCUSATE SODIUM 50 MG/SENNA 8.6 MG TAB PO SCH ×2 (09:22→20:51)
[2017-06-19] MEDS: LACTULOSE SYRUP 20 GM/30 ML CUP PO SCH ×4 (09:22→20:51)
[2017-06-19] MEDS: CHLORHEXIDINE 0.12% (ORAL KIT) 15 ML CUP MT SCH ×2 (10:24→19:59)
[2017-06-19] MEDS: THIAMINE INJ 100 MG in SODIUM CHLORIDE 0.9% INJ 100 ML IV SCH (10:24)
[2017-06-19] MEDS: PHENYLEPHRINE INJ 160 MG in DEXTROSE 5% IN WATE 500 ML INJ 484 ML IV PRN ×2 (11:11)
[2017-06-19] MEDS ORDERED: HEPARIN-D5W 25,000 U/250 ML 250 ML IV PRN (11:45)
[2017-06-19] MEDS ORDERED: ASPIRIN 81 MG CHEW TAB CHEW ONE (12:30)
--- NOTE | 2017-06-19 13:04 | EKG ---
Date Performed: 06/18/2017 Time Performed: 12:15:40 PTAGE: 62 years EKG: ECTOPIC ATRIAL RHYTHM POSSIBLE LEFT ATRIAL ENLARGEMENT POSSIBLE RIGHT VENTRICULAR CONDUCTIO N DELAY MODERATE ST DEPRESSION ABNORMAL ECG There is marked baseline wanderinga and this is a technic ally poor tracing. Recommend repeat tracing of better quality. NO PREVIOUS TRACING DOCTOR: Julio Garcia Interpretating Date/Time 06/19/2017 13:02:45
[2017-06-19 14:22] LABS: HEMATOCRIT 32.1 % (39.0-51.0); HEMOGLOBIN 11.3 GM/DL (13.0-17.0); MEAN CELL VOLUME 92.6 FL (80.0-100.0); MEAN CORPUSCULAR HEMOGLOBIN 32.7 PG (27.0-34.0); MEAN CORPUSCULAR HGB CONC 35.3 % (32.0-36.0); MEAN PLATELET VOLUME 7.3 FL (7.0-11.0); PLATELET COUNT 190 TH/MM3 (150-450); RED BLOOD COUNT 3.47 MIL/MM3 (4.50-5.90); RED CELL DISTRIBUTION WIDTH 12.9 % (11.6-17.2); WHITE BLOOD COUNT 13.7 TH/MM3 (4.0-11.0)
[2017-06-19 14:32] LABS: INTERNATIONAL NORMALIZED RATIO 1.1 RATIO; PROTHROMBIN TIME - PATIENT 11.4 SEC (9.8-11.6)
[2017-06-19 15:09] LABS: BICARBONATE 23.3 MEQ/L (21.0-32.0); CALCIUM 7.2 MG/DL (8.5-10.1); CHOLESTEROL/ HDL RATIO 5.11 RATIO; CREATININE 2.18 MG/DL (0.60-1.30); MAGNESIUM 1.8 MG/DL (1.5-2.5); PHOSPHORUS 3.5 MG/DL (2.5-4.9)
[2017-06-19 15:13] LABS: TROPONIN I 0.61 NG/ML (0.02-0.05)
[2017-06-19] MEDS ORDERED: DC Insulin drip 2 hrs post basal insulin dose ONE (15:30)
[2017-06-19] MEDS ORDERED: DEXTROSE 50% IN WATER 50 ML VIAL(D50) IV PUSH PRN (15:30)
[2017-06-19] MEDS ORDERED: DC previous DKA orders (HMC 1917) ONE (15:30)
[2017-06-19] MEDS ORDERED: POTASSIUM CHLOR 40 MEQ PREMIX 100 ML IV ONE (15:30)
[2017-06-19] MEDS ORDERED: GLUCAGON 1 MG/ML VIAL OTHER PRN (15:30)
--- NOTE | 2017-06-19 15:30 | MB ---
cc: Eros Doan MD DATE OF CONSULT: HISTORY OF PRESENT ILLNESS: A 62-year-old white male with a history of diabetes mellitus and hypertension who was found unresponsive by his friend in the hotel room. He was diagnosed with DKA and metabolic encephalopathy. He has previous history of admission for DKA and non-ST elevation myocardial infarction in the past. The patient was intubated for acute respiratory failure and placed on the ventilator. His troponin is slightly elevated. PAST MEDICAL HISTORY: Positive for diabetes mellitus, hypertension. ALLERGIES: NONE KNOWN AT THIS TIME. SOCIAL HISTORY: Unknown. FAMILY HISTORY: Unknown. REVIEW OF SYSTEMS: Otherwise negative. PHYSICAL EXAMINATION: VITAL SIGNS: Blood pressure 110/62, pulse 95 and regular. HEENT: Negative. Two plus carotid upstrokes, brisk. No bruits. The patient is intubated and sedated. LUNGS: Clear. HEART: Regular with no murmur, gallop or rub. ABDOMEN: Soft. EXTREMITIES: No edema, 1+ distal pulses. NEUROLOGIC: Grossly nonfocal. The patient is currently sedated. EKG was reviewed and showed a normal sinus rhythm with normal axis and intervals. No acute changes. LABORATORY DATA: Hemoglobin 12.8. Potassium 4.0, creatinine 2.24, AST of 39, ALT of 56, CK of 273. Troponin 0.04, 0.09 and 1.68. ASSESSMENT: 1. Acute respiratory failure. 2. Diabetic ketoacidosis. 3. Diabetes mellitus. 4. Hypertension. 5. Renal insufficiency. 6. Elevated troponin. PLAN: Mr. Mujica will be monitored on telemetry. We will obtain echocardiogram to evaluate his left ventricular function. He has previous history of similar hospitalization with elevated troponin. Based on the discussion with his sister, the patient was previously intubated and has been noncompliant, drinking alcohol. I will follow him for cardiology during his hospitalization. MD GRAZYNA Fields/DREAD , 02:27 PM , 03:29 PM DYLLAN
[2017-06-19] MEDS: INSULIN DETEMIR 100 UNITS/ML VIAL SQ SCH ×2 (15:39→19:55)
[2017-06-19] MEDS: INSULIN NovoLIN REGULAR SUPPLEMENTAL SCALE SQ SCH ×2 (15:41→20:00)
[2017-06-19 15:44] LABS: CALCIUM-PROTEIN CORRECTED 8.4 MG/DL (8.5-10.1); TOTAL PROTEIN 4.9 GM/DL (6.4-8.2)
[2017-06-20] VITALS (22 sets, daily range): BP systolic 97–240; BP diastolic 51–114; PULSE 71–123; RESP 15–25; TEMP 97.8–100.2; O2SAT 92–100
[2017-06-20] MEDS: PIPERACIL-TAZO 2.25 GM PREMIX 50 ML IV SCH ×4 (01:42→20:17)
[2017-06-20] MEDS: CHLORHEXIDINE GLUCONATE 2 % 1 PACK (2 CLOTHS) TOP SCH (01:42)
[2017-06-20] MEDS: INSULIN NovoLIN REGULAR SUPPLEMENTAL SCALE SQ SCH ×8 (01:42→23:58)
[2017-06-20] MEDS: RESP: ALBUTEROL 2.5 MG/IPRATROPIUM 0.5 MG NEB (SCH) INH ×6 (04:27→23:46)
[2017-06-20] MEDS: DEXTROSE 5%-NACL 0.225% INJ 1,000 ML IV SCH (05:32)
--- NOTE | 2017-06-20 06:52 | RADRPT ---
EXAM DATE/TIME: 06/20/2017 05:23 [facility] COMPARISON: CHEST SINGLE AP, June 18, 2017, 17:05. INDICATIONS : Shortness of breath, possible pulmonary disease. MEDICAL HISTORY : Diabetes SURGICAL HISTORY : None. ENCOUNTER: Subsequent ACUITY: 3 days PAIN SCORE: Non-responsive. LOCATION: Bilateral chest FINDINGS: A single view of the chest demonstrates the lungs to be symmetrically aerated without evidence of mas s, infiltrate or effusion. The cardiomediastinal contours are unremarkable. Osseous structures are intact. ETT tip well above the mg. Gastric tube traverses the [id number]. Left central line tip projects in the mid superior vena cava. CONCLUSION: The lungs are clear. Beltran Bee MD on June 20, 2017 at 6:51 Board Certified Radiologist. This report was verified electronically.
[2017-06-20 06:58] LABS: INTERNATIONAL NORMALIZED RATIO 1.1 RATIO; PROTHROMBIN TIME - PATIENT 11.4 SEC (9.8-11.6)
[2017-06-20 07:49] LABS: ALBUMIN 2.4 GM/DL (3.4-5.0); ALKALINE PHOSPHATASE 96 U/L (45-117); ALT (GPT) 30 U/L (12-78); AST (GOT) 28 U/L (15-37); BICARBONATE 20.2 MEQ/L (21.0-32.0); BLOOD UREA NITROGEN 29 MG/DL (7-18); CALCIUM 7.4 MG/DL (8.5-10.1); CALCIUM-PROTEIN CORRECTED 8.7 MG/DL (8.5-10.1); CHLORIDE 118 MEQ/L (98-107); CHOLESTEROL 145 MG/DL (120-200); CHOLESTEROL/ HDL RATIO 6.33 RATIO; CREATININE 2.16 MG/DL (0.60-1.30); FREE T4 0.88 NG/DL (0.76-1.46); GLOMERULAR FILTRATION RATE 31 ML/MIN (>89); GLUCOSE,RANDOM 138 MG/DL (74-106); HDL CHOLESTEROL 22.9 MG/DL (40.0-60.0); MAGNESIUM 1.9 MG/DL (1.5-2.5); PHOSPHORUS 1.8 MG/DL (2.5-4.9); SODIUM (NA) 149 MEQ/L (136-145); TOTAL BILIRUBIN ADULT 0.3 MG/DL (0.2-1.0); TOTAL PROTEIN 4.8 GM/DL (6.4-8.2); TRIGLYCERIDES 408 MG/DL (42-150); TROPONIN I 0.27 NG/ML (0.02-0.05)
[2017-06-20] MEDS: CHLORHEXIDINE 0.12% (ORAL KIT) 15 ML CUP MT SCH ×2 (08:00→20:23)
[2017-06-20] MEDS: SODIUM CHLORIDE 0.9% FLUSH 10 ML FLUSH IV FLUSH SCH ×3 (09:00→20:17)
[2017-06-20] MEDS: INSULIN DETEMIR 100 UNITS/ML VIAL SQ SCH ×2 (09:00→21:09)
[2017-06-20] MEDS: ASPIRIN 81 MG CHEW TAB CHEW SCH (09:00)
[2017-06-20] MEDS: DOCUSATE SODIUM 50 MG/SENNA 8.6 MG TAB PO SCH ×2 (09:00→20:18)
[2017-06-20] MEDS: ARTIFICIAL TEARS OPTH SOLN 15 ML BTL EACH EYE SCH ×3 (09:00→17:19)
[2017-06-20] MEDS: LACTULOSE SYRUP 20 GM/30 ML CUP PO SCH ×4 (09:00→20:18)
[2017-06-20] MEDS: FAMOTIDINE 20 MG/2 ML VIAL IV PUSH SCH ×2 (09:09→20:18)
[2017-06-20] MEDS: MULTIVITAMIN TAB PO SCH (09:09)
[2017-06-20] MEDS: FOLIC ACID 1 MG TAB PO SCH (09:09)
[2017-06-20] MEDS: THIAMINE INJ 100 MG in SODIUM CHLORIDE 0.9% INJ 100 ML IV SCH (09:15)
[2017-06-20] MEDS ORDERED: DEXTROSE 50% IN WATER 50 ML VIAL(D50) IV PUSH PRN (09:30)
[2017-06-20] MEDS ORDERED: GLUCAGON 1 MG/ML VIAL OTHER PRN (09:30)
--- NOTE | 2017-06-20 09:43 | HHI.CCPN ---
Subjective Remarks/Hospital Course 62-year-old male. Date of admission 06/18/2017. Past medical history includes diabetes according to friend per ER physician who is currently unavailable. This individual presented to the emergency room by EMS after he was found unresponsive this morning by his friend in the hotel room. When EMS arrived and checked his blood sugar the meter read high. They brought him unresponsive with GCS of 3. Vital signs were otherwise stable. Patient was in no condition to give any meaningful history. The bedside blood sugar in the emergency room read high as well. There is no family or friend currently with the patient. He was last seen normal last night. Patient received 20 mg etomidate and 100 mg succinylcholine was extubated with a 7.[address] brain revealed no acute intracranial findings. His white blood cell count is 41,000. He has a macrocytosis on his lab draws ammonia levels 161. Received vancomycin and piperacillin/tazobactam in the emergency department. He was started on lactulose 30 cc 4 times daily. EKG revealed normal sinus rhythm 83. Incomplete right bundle branch block. Troponin is currently pending. Creatinine was 2.4. Potassium is 6.3. Sodium was 127. Troponin 0 0.04. TSH 1.19. Patient received 10 mg insulin R and started on a drip currently 8 units an hour. 3 L normal saline wide open. Currently normal saline at 250 cc now. We are asked to admit. Subjective 06/19: Afebrile. Currently resting in bed in no acute distress on sedation. Decreased urine output. Replacing phosphorus this a.m. No bowel movement. Will start on tube feedings with Glucerna 1.5 06/20 Patient remains intubated on no sedation. Off Neosyn and insulin drips. Afebrile. Objective Vital Signs Date Time Temp Pulse Resp B/P (MAP) Pulse Ox O2 Delivery O2 Flow Rate FiO2 06/20/17 07:51 100 25 06/20/17 06:00 81 06/20/17 04:00 97.8 16 97/51 (66) 06/18/17 14:12 Ventilator Intake and Output 06/20/17 06/20/17 06/21/17 08:00 16:00 00:00 Output Total 950 ml Balance -950 ml Result Diagram: 06/19/17 1345 06/20/17 0616 Other Results Laboratory Tests Test 06/19/17 13:45 06/20/17 01:43 06/20/17 06:16 White Blood Count 13.7 TH/MM3 Red Blood Count 3.47 MIL/MM3 Hemoglobin 11.3 GM/DL Hematocrit 32.1 % Mean Corpuscular Volume 92.6 FL Mean Corpuscular Hemoglobin 32.7 PG Mean Corpuscular Hemoglobin Concent 35.3 % Red Cell Distribution Width 12.9 % Platelet Count 190 TH/MM3 Mean Platelet Volume 7.3 FL Prothrombin Time 11.4 SEC 11.4 SEC Prothromb Time International Ratio 1.1 RATIO 1.1 RATIO Activated Partial Thromboplast Time 24.8 SEC 35.2 SEC Blood Urea Nitrogen 38 MG/DL 29 MG/DL Creatinine 2.18 MG/DL 2.16 MG/DL Random Glucose 192 MG/DL 138 MG/DL Total Protein 4.9 GM/DL 4.8 GM/DL Calcium Level 7.2 MG/DL 7.4 MG/DL Phosphorus Level 3.5 MG/DL 1.8 MG/DL Magnesium Level 1.8 MG/DL 1.9 MG/DL Sodium Level 148 MEQ/L 149 MEQ/L Potassium Level 3.3 MEQ/L 3.3 MEQ/L Chloride Level 115 MEQ/L 118 MEQ/L Carbon Dioxide Level 23.3 MEQ/L 20.2 MEQ/L Anion Gap 10 MEQ/L 11 MEQ/L Estimat Glomerular Filtration Rate 31 ML/MIN 31 ML/MIN Protein Corrected Calcium 8.4 MG/DL 8.7 MG/DL Total Creatine Kinase 316 U/L 338 U/L Creatine Kinase MB 8.1 NG/ML 4.4 NG/ML Creatine Kinase MB % 2.6 % 1.3 % Troponin I 0.61 NG/ML 0.27 NG/ML Triglycerides Level 329 MG/DL 408 MG/DL Cholesterol Level 133 MG/DL 145 MG/DL LDL Cholesterol 41 MG/DL MG/DL HDL Cholesterol 26.0 MG/DL 22.9 MG/DL Cholesterol/HDL Ratio 5.11 RATIO 6.33 RATIO Amylase Level 650 U/L 547 U/L Lipase 2012 U/L 1651 U/L B-Hydroxybutyrate 0.37 MMOL/L Fibrinogen 424 mg/dL Albumin 2.4 GM/DL Alkaline Phosphatase 96 U/L Aspartate Amino Transf (AST/SGOT) 28 U/L Alanine Aminotransferase (ALT/SGPT) 30 U/L Total Bilirubin 0.3 MG/DL Lactic Acid Level 1.9 mmol/L Ammonia 51 MCMOL/L Free Thyroxine 0.88 NG/DL Random Cortisol 14.6 MCG/DL Imaging Last Impressions Chest X-Ray 06/20/17 0600 Signed Impressions: Service Date/Time: Tuesday, June 20, 2017 05:23 - CONCLUSION: The lungs are clear. Beltran Bee MD Head CT 06/18/17 1217 Signed Impressions: Service Date/Time: Sunday, June 18, 2017 12:58 - CONCLUSION: 1. No acute intracranial abnormality. Kushal Aggarwal MD Liver Ultrasound 06/18/17 0000 Signed Impressions: Service Date/Time: Sunday, June 18, 2017 13:50 - CONCLUSION: The liver is normal in size and echogenicity. No evidence of mass. There are large but benign-appearing left renal cyst present.. Elizabeth Javier MD Objective Remarks GENERAL: 62-year-old male currently orotracheally intubated SKIN: Warm and dry. Face and upper extremity are sunburned HEAD: Atraumatic. Normocephalic. EYES: Pupils equal and round about 4 mm bilaterally and reactive. No scleral icterus. No injection or drainage. ENT: No nasal bleeding or discharge. Mucous membranes pink and moist. NECK: Trachea midline. No JVD. Left IJ is clean dry and intact CARDIOVASCULAR: Regular rate and rhythm. S1, S2. No S4. No murmur RESPIRATORY: Tachypneic, using accessory muscles. No wheezing appreciated. GASTROINTESTINAL: Abdomen soft, non-tender, nondistended. Hypoactive bowel sounds are appreciated MUSCULOSKELETAL: Extremities without significant peripheral edema. No obvious deformities. Right femoral arterial line is clean dry and intact NEUROLOGICAL: Cranial nerves II through XII grossly intact. Positive gag and corneal reflex. Positive cough. Withdraws to pain. Moves all 4 extremities on sedation vacation but not following commands. Date of Insertion: Jun 18, 2017 Line: Central Venous Catheter Side: Left Location: Internal, Jugular A/P Assessment and Plan Neuro/Psych: Acute toxic metabolic encephalopathy secondary hyperglycemia and elevated ammonia Off sedation, monitor neuro status CT brain 06/18 revealed no acute intracranial findings Ammonia level is 161 on admission currently 51 Thiamine 100 mg IV daily, folate 1 mg daily and MVI daily Check EEG CV: History of hypertension Lactic acidosis Elevated troponin likely type II non-STEMI due to demand ischemia Place on Lopressor 25mg Q12 monitor HR and BP keep MAP>65mmHg Lactate is currently 1.9 from 4.5 on arrival Cards is following- Dr. Doan. Echo showed EF 55-60% On ASA 81mg daily and Heparin drip- d/c heparin drip if ok with cards Resp: Acute hypoxemic respiratory failure PR[facility] 15/600/04/08/ Ventilator bundle Albuterol/ipratropium aerosols every 4 hours with albuterol aerosols every 2 hours needed for dyspnea Spontaneous breathing trials when clinically indicated CXR today- clear lungs GI: Hyperammonia Elevated Lipase level. On Glucerna 1.5 goal 50 cc an hour Famotidine 20 mg daily for GI prophylaxis Docusate sodium/senna 1 tablet twice daily for bowel regimen Change Lactulose 30 cc every 4 hours for elevated ammonia level. Currently 51 Liver ultrasound revealed no acute finding. Hepatitis panel negative. Monitor Lipase level. Check CT abd/pelvis Endo: Diabetic ketoacidosis- resolved Hyperglycemia Change SSI to medium scale and decrease Levemir 10u BID Renal: Acute kidney injury Hypernatremia Monitor renal function, I/O's, avoid nephrotoxins. Will need K, Phos replacement today Cr: 2.1, UOP: 1650ml in [address] on 04/05 NS@84ml/hr Heme: Leukocytosis neutrophil predominant Normocytic anemia Monitor CBC, coags, d/c heparin drip and check Hep PLT ab ID: Cystitis On piperacillin/tazobactam monitor for signs of infections ( Fever, WBC) Received 1 dose of vancomycin ED Blood cultures, Influenza screening, strep pneumonia and Legionella urinary Ag all negative MSK: PT evaluate and treat Access -Utilize peripheral IV. Left IJ CVP and right femoral Art line 06/18 Prophylaxis -GI -famotidine -DVT -SCD/ hold heparin drip. Level 3 Beto Silva MD Jun 20, 2017 09:42
--- NOTE | 2017-06-20 10:34 | EKG ---
Date Performed: 06/19/2017 Time Performed: 11:21:43 PTAGE: 62 years EKG: Sinus rhythm LOW QRS VOLTAGE IN EXTREMITY LEADS ST ELEVATION, CONSIDER INFERIOR INJURY ACUTE AK Compared to PREVIOUS TRACING the patient has anterior ST elevation potentially consisent with acute injury pattern Clinical Correlation Requested PREVIOUS TRACIN06/18/2017 12.15 DOCTOR: Martha Yung Interpretating Date/Time 06/20/2017 10:32:56
[2017-06-20] MEDS: METOPROLOL TARTRATE 25 MG TAB PO SCH ×2 (10:39→21:00)
[2017-06-20] MEDS: SODIUM CHLOR 0.45% 1000 ML INJ 1,000 ML IV SCH (10:39)
[2017-06-20] MEDS ORDERED: POTASSIUM PHOSPHATE INJ 15 MMOL in SODIUM CHLORIDE 0.9% INJ 150 ML IV ONE (11:00)
[2017-06-20 11:36] LABS: AUTOMATED NEUTROPHIL # 4.9 TH/MM3 (1.8-7.7); BASOPHIL % 0.3 % (0.0-2.0); EOSINOPHIL % 0.1 % (0.0-4.0); HEMATOCRIT 31.2 % (39.0-51.0); HEMOGLOBIN 11.1 GM/DL (13.0-17.0); LYMPHOCYTE # 0.8 TH/MM3 (1.0-4.8); MEAN CELL VOLUME 93.6 FL (80.0-100.0); MEAN CORPUSCULAR HEMOGLOBIN 33.2 PG (27.0-34.0); MEAN CORPUSCULAR HGB CONC 35.5 % (32.0-36.0); MEAN PLATELET VOLUME 7.7 FL (7.0-11.0); MONOCYTE # 0.4 TH/MM3 (0-0.9); NEUT % 79.6 % (16.0-70.0); PLATELET COUNT 86 TH/MM3 (150-450); RED BLOOD COUNT 3.33 MIL/MM3 (4.50-5.90); RED CELL DISTRIBUTION WIDTH 13.1 % (11.6-17.2); WHITE BLOOD COUNT 6.2 TH/MM3 (4.0-11.0)
[2017-06-20] MEDS: hydrALAZINE HCL 20 MG/ML VIAL IV PUSH PRN (12:46)
[2017-06-20] MEDS ORDERED: HALOPERIDOL LACTATE 5 MG/ML AMP IV PUSH ONE (14:00)
[2017-06-20] MEDS ORDERED: METOPROLOL TARTRATE 5 MG/5 ML VIAL IV PUSH ONE (14:00)
[2017-06-20 14:32] LABS: AUTOMATED NEUTROPHIL # 4.6 TH/MM3 (1.8-7.7); BASOPHIL % 0.2 % (0.0-2.0); HEMATOCRIT 30.9 % (39.0-51.0); LYMPHOCYTE # 0.5 TH/MM3 (1.0-4.8); MEAN CELL VOLUME 93.2 FL (80.0-100.0); MEAN CORPUSCULAR HEMOGLOBIN 33.2 PG (27.0-34.0); MEAN CORPUSCULAR HGB CONC 35.6 % (32.0-36.0); MONO % 6.6 % (0.0-8.0); MONOCYTE # 0.4 TH/MM3 (0-0.9); NEUT % 83.2 % (16.0-70.0); PLATELET COUNT 81 TH/MM3 (150-450); RED BLOOD COUNT 3.32 MIL/MM3 (4.50-5.90); RED CELL DISTRIBUTION WIDTH 13.2 % (11.6-17.2); WHITE BLOOD COUNT 5.5 TH/MM3 (4.0-11.0)
[2017-06-20] MEDS: DEXMEDETOMIDINE INJ 200 MCG in SODIUM CHLORIDE 0.9% INJ 50 ML IV PRN ×4 (14:36→22:07)
--- NOTE | 2017-06-20 16:15 | RADRPT ---
EXAM DATE/TIME: 06/20/2017 15:58 [facility] COMPARISON: No previous studies available for comparison. INDICATIONS : Elavated lipase ORAL CONTRAST: No oral contrast ingested. RADIATION DOSE: 11.38 CTDIvol (mGy) MEDICAL HISTORY : Diabetes mellitus type 1. Hypertension. SURGICAL HISTORY : None. ENCOUNTER: Initial ACUITY: 1 day PAIN SCALE: Non-responsive LOCATION: abdomen TECHNIQUE: Volumetric scanning of the abdomen and pelvis was performed. Using automated exposure control and ad justment of the mA and/or kV according to patient size, radiation dose was kept as low as reasonably achievable to obtain optimal diagnostic quality images. DICOM format image data is available electro nically for review and comparison. FINDINGS: LOWER LUNGS: Trace bilateral pleural effusions with minimal bibasilar airspace consolidation. LIVER: Homogeneous density without lesion. There is no dilation of the biliary tree. No calcified gallston es. SPLEEN: Normal size without lesion. PANCREAS: Unremarkable by CT. No significant pancreatic ductal dilatation KIDNEYS: 2 large simple appearing cysts in the left kidney near the inferior pole measuring 6.5 x 5.5 cm and 8 .9 x 8.5 cm. No radiopaque renal calculi. Kidneys are otherwise unremarkable without hydronephrosis. ADRENAL GLANDS: Within normal limits. VASCULAR: There is no aortic aneurysm. There is a right femoral line. BOWEL/MESENTERY: There is an NGT in the stomach. The stomach, small bowel, and colon demonstrate no acute abnormality. Mild sigmoid and scattered colonic diverticula. Very trace free fluid in the inferior margin of the liver. ABDOMINAL WALL: Within normal limits. RETROPERITONEUM: There is no lymphadenopathy. BLADDER: Decompressed secondary to Thomson catheter. REPRODUCTIVE: Within normal limits. INGUINAL: There is no lymphadenopathy or hernia. MUSCULOSKELETAL: Degenerative changes of the lumbar spine without focal abnormal lytic or blastic bony lesions. CONCLUSION: 1. Unremarkable unenhanced CT appearance of the pancreas. No gross peripancreatic inflammatory change , pancreatic ductal dilatation or peripancreatic fluid collections. Please note that CT examination i s not sensitive for acute uncomplicated pancreatitis, particularly without IV contrast. 2. Trace bilateral pleural effusions with minimal bibasilar consolidation, likely atelectasis. 3. Very trace free fluid along the inferior margin of the liver. 4. Ancillary findings include colonic diverticulosis, left renal cyst and degenerative spondylosis of the lumbar spine. Monroe Figueroa MD on June 20, 2017 at 16:04 Board Certified Radiologist. This report was verified electronically.
--- NOTE | 2017-06-20 16:41 | ECHRPT ---
Indication: HEART FAILURE CONCLUSIONS The left ventricular systolic function is normal with an estimated ejection fraction in the range of 55-60%. Normal left ventricular size. Moderate concentric left ventricular hypertrophy. No regional wall motion abnormalities are present. Mild mitral annular calcification. BP: 97 / 51 HR: 87 Rhythm: Sinus MEASUREMENTS (Male / Female) Normal Values Technical Quality:Fair 2D ECHO LV Diastolic Diameter PLAX 3.7 cm 4.2 - 5.9 / 3.9 - 5.3 cm LV Systolic Diameter PLAX 2.7 cm IVS Diastolic Thickness 1.4 cm 0.6 - 1.0 / 0.6 - 0.9 cm LVPW Diastolic Thickness 1.5 cm 0.6 - 1.0 / 0.6 - 0.9 cm LV Relative Wall Thickness 0.8 RV Internal Dim ED PLAX 2.9 cm LVOT Diameter 1.9 cm LA Systolic Diameter LX 3.5 cm 3.0 - 4.0 / 2.7 - 3.8 cm M-MODE Aortic Root Diameter MM 2.6 cm LA Systolic Diameter MM 3.6 cm LA Ao Ratio MM 1.4 AV Cusp Separation MM 2.2 cm DOPPLER AV Peak Velocity 136.0 cm/s AV Peak Gradient 7.4 mmHg LVOT Peak Velocity 124.0 cm/s LVOT Peak Gradient 6.2 mmHg AV Area Cont Eq pk 2.6 cm MV Area PHT 4.1 cm Mitral E Point Velocity 74.0 cm/s Mitral A Point Velocity 89.3 cm/s Mitral E to A Ratio 0.8 TR Peak Velocity 172.0 cm/s TR Peak Gradient 11.8 mmHg Right Atrial Pressure 10.0 mmHg Pulmonary Artery Systolic Pressu 21.8 mmHg Right Ventricular Systolic Press 21.8 mmHg PV Peak Velocity 102.0 cm/s PV Peak Gradient 4.2 mmHg FINDINGS LEFT VENTRICLE The left ventricular systolic function is normal with an estimated ejection fraction in the range of 55-60%. Normal left ventricular size. Moderate concentric left ventricular hypertrophy. No regional wall motion abnormalities are present. RIGHT VENTRICLE Normal right ventricular size and systolic function. LEFT ATRIUM The left atrial size is normal. RIGHT ATRIUM The right atrial size is normal. ATRIAL SEPTUM Normal atrial septal thickness without atrial level shunting by limited color doppler interrogation. AORTA The aortic root and proximal ascending aorta are normal in size on limited imaging. MITRAL VALVE Mild mitral annular calcification. AORTIC VALVE Trileaflet aortic valve. No aortic valve stenosis or regurgitation. TRICUSPID VALVE Structurally normal tricuspid valve. No tricuspid valve stenosis or regurgitation. PULMONARY VALVE The pulmonary valve is not well visualized. VESSELS The inferior vena cava is normal in size. PERICARDIUM No pericardial effusion. Eros Doan MD, FACC (Electronically Signed) Final Date:20 June 2017 16:40
--- NOTE | 2017-06-20 17:57 | MG ---
cc: Stacy Gaines MD REQUESTED BY: INDICATION: An EEG was obtained on this 62-year-old patient being evaluated for decreased responsiveness. DESCRIPTION: The patient is described as intubated. The EEG shows some generalized attenuation and mixture of theta with some delta rhythms bilaterally. There is artifact intermittently and there is a lack of alpha activity. The tracing appears to be symmetrical throughout with no change with photic stimulation. INTERPRETATION: Abnormal electroencephalogram because of generalized slowing suggesting a moderately severe diffuse disturbance of cerebral function. No epileptiform features present. Stacy Gaines MD OFC/SB , 04:57 PM , 05:56 PM
--- NOTE | 2017-06-20 18:52 | PD.CARD.PN ---
Subjective Subjective Remarks Intubated, off pressors and hypertensive Objective Medications Current Medications Medications (Trade) Dose Ordered Sig/Buffy Route Start Time Stop Time Status Last Admin Potassium Chloride 100 ml @ 100 mls/hr Q1H PRN IV 06/18/17 12:30 06/19/17 03:58 Potassium Chloride 100 ml @ 50 mls/hr Q2H PRN IV 06/18/17 12:30 Potassium Chloride 100 ml @ 100 mls/hr Q1H PRN IV 06/18/17 12:30 Potassium Chloride 100 ml @ 100 mls/hr Q1H PRN IV 06/18/17 12:30 Potassium Chloride 100 ml @ 50 mls/hr Q2H PRN IV 06/18/17 12:30 Potassium Chloride 100 ml @ 50 mls/hr Q2H PRN IV 06/18/17 12:30 Potassium Chloride 100 ml @ 50 mls/hr Q2H PRN IV 06/18/17 12:30 Potassium Chloride 100 ml @ 50 mls/hr Q2H PRN IV 06/18/17 12:30 (Sodium Bicarbonate 8.4% Inj) 100 meq UNSCH PRN IV PUSH 06/18/17 12:30 06/18/17 13:19 (Sodium Bicarbonate 8.4% Inj) 50 meq UNSCH PRN IV PUSH 06/18/17 12:30 Sodium Phosphate 15 mmol/Sodium Chloride 105 ml @ 25 mls/hr UNSCH PRN IV 06/18/17 12:30 (NS Flush) 2 ml UNSCH PRN IV FLUSH 06/18/17 13:15 (NS Flush) 2 ml BID IV FLUSH 06/18/17 21:00 06/20/17 09:00 (Pepcid Inj) 20 mg Q12HR IV PUSH 06/18/17 21:00 06/20/17 09:09 (Tears Naturale Opth Soln) 1 drop TID EACH EYE 06/18/17 18:00 06/20/17 17:19 (Zofran Inj) 4 mg Q6H PRN IV PUSH 06/18/17 13:15 (Duoneb Neb) 1 ampule Q4HR NEB INH 06/18/17 16:00 06/20/17 16:22 (Albuterol Neb) 2.5 mg Q2HR NEB PRN INH 06/18/17 13:15 Miscellaneous Information 1 Q361D XX 06/18/17 13:15 06/18/17 20:53 (Chlorhexidine 2% Cloth) 3 pack Taper DAILY@04 TOP 06/19/17 04:00 06/15/18 03:59 06/20/17 01:42 (Chlorhexidine 2% Cloth) 3 pack UNSCH PRN TOP 06/18/17 13:15 (Natasha-Colace) 1 tab BID PO 06/18/17 21:00 06/19/17 09:22 (Milk Of Magnesia Liq) 30 ml Q12H PRN PO 06/18/17 13:15 (Senokot) 17.2 mg Q12H PRN PO 06/18/17 13:15 (Dulcolax Supp) 10 mg DAILY PRN RECTAL 06/18/17 13:15 (Lactulose Liq) 30 ml DAILY PRN PO 06/18/17 13:15 06/18/17 20:48 (Peridex 0.12% Liq) 15 ml BID@08,20 MT 06/18/17 20:00 06/20/17 08:00 Thiamine HCl 100 mg/Sodium Chloride 101 ml @ 101 mls/hr DAILY IV 06/19/17 09:00 06/20/17 09:15 (Folate) 1 mg DAILY PO 06/19/17 09:00 06/20/17 09:09 (Theragran) 1 tab DAILY PO 06/19/17 09:00 06/20/17 09:09 Piperacillin Sod/ Tazobactam Sod 50 ml @ 100 mls/hr Q6H IV 06/18/17 20:00 06/20/17 16:46 (Brethine Inj) 1 mg UNSCH PRN SQ 06/18/17 16:30 (NS Flush) DAILY IV FLUSH 06/18/17 17:00 06/20/17 09:00 (NS Flush) UNSCH PRN IV FLUSH 06/18/17 17:00 (Aspirin Chew) 81 mg DAILY CHEW 06/20/17 09:00 06/20/17 09:00 (Levemir Inj) 10 units BID SQ 06/20/17 21:00 (Lactulose Liq) 30 ml Q4H PO 06/20/17 13:00 06/20/17 17:35 (D50w (Vial) Inj) 50 ml UNSCH PRN IV PUSH 06/20/17 09:30 (Glucagon Inj) 1 mg UNSCH PRN OTHER 06/20/17 09:30 (NovoLIN R SUPPLEMENTAL SCALE) 1 Q4HR SQ 06/20/17 09:30 06/20/17 16:00 Sodium Chloride 1,000 ml @ 84 mls/hr [id number] IV 06/20/17 09:30 06/20/17 10:39 (Lopressor) 25 mg Q12HR PO 06/20/17 10:00 06/20/17 10:39 (Apresoline Inj) 10 mg Q6H PRN IV PUSH 06/20/17 10:00 06/20/17 12:46 Dexmedetomidine HCl 200 mcg/ Sodium Chloride 52 ml @ 3.93 mls/hr TITRATE PRN IV 06/20/17 14:15 06/20/17 17:21 Vital Signs / I&O Vital Signs Date Time Temp Pulse Resp B/P (MAP) Pulse Ox O2 Delivery O2 Flow Rate FiO2 06/20/17 18:00 75 06/20/17 16:20 100 25 06/20/17 16:19 100 100 06/20/17 16:00 25 06/20/17 16:00 100.2 91 18 142/79 (100) 100 06/20/17 16:00 91 06/20/17 14:00 96 06/20/17 13:00 123 240/114 (156) 06/20/17 12:39 100 25 06/20/17 12:39 25 06/20/17 12:00 116 06/20/17 12:00 99.5 116 25 203/99 (133) 98 06/20/17 12:00 25 06/20/17 10:00 97 06/20/17 08:00 98.8 107 16 208/97 (134) 100 06/20/17 08:00 25 06/20/17 08:00 107 06/20/17 07:51 100 25 06/20/17 07:51 25 06/20/17 07:00 82 126/63 (84) 06/20/17 06:00 81 06/20/17 04:27 92 25 06/20/17 04:00 25 06/20/17 04:00 87 06/20/17 04:00 97.8 75 16 97/51 (66) 100 06/20/17 02:00 87 06/20/17 01:42 88 183/80 06/20/17 00:00 98.0 88 16 183/80 (114) 06/20/17 00:00 88 06/20/17 00:00 25 06/19/17 23:28 100 25 06/19/17 22:00 77 06/19/17 20:00 75 06/19/17 20:00 25 06/19/17 20:00 97.7 75 16 135/65 (88) 100 06/19/17 19:43 100 25 06/19/17 19:00 73 135/65 (88) I/O 06/19/17 06/19/17 06/19/17 06/20/17 06/20/17 06/20/17 07:00 15:00 23:00 07:00 15:00 23:00 Intake Total 4097 ml 2100 ml 530 ml 201 ml 1049 ml Output Total 1200 ml 700 ml 950 ml 1600 ml Balance 2897 ml 2100 ml -170 ml -950 ml 201 ml -551 ml Intake Oral 0 ml 0 ml IV Total 3997 ml 2100 ml 501 ml 201 ml 817 ml Tube Feeding 29 ml 32 ml Tube Irrigant 200 ml Other 100 ml Output Urine Total 1200 ml 700 ml 950 ml 1300 ml Stool Total 300 ml # Bowel Movements 0 0 2 3 Physical Exam GENERAL: Intubated, on the vent SKIN: Warm and dry. HEAD: Normocephalic. EYES: No scleral icterus. No injection or drainage. NECK: Supple, trachea midline. No JVD or lymphadenopathy. CARDIOVASCULAR: Regular rate and rhythm without murmurs, gallops, or rubs. RESPIRATORY: Breath sounds equal bilaterally. No accessory muscle use. GASTROINTESTINAL: Abdomen soft, non-tender, nondistended. MUSCULOSKELETAL: No cyanosis, or edema. Laboratory Laboratory Tests Test 06/20/17 01:43 06/20/17 06:16 06/20/17 08:55 06/20/17 09:40 Activated Partial Thromboplast Time 35.2 SEC 42.3 SEC Prothrombin Time 11.4 SEC Prothromb Time International Ratio 1.1 RATIO Fibrinogen 424 mg/dL Blood Urea Nitrogen 29 MG/DL Creatinine 2.16 MG/DL Random Glucose 138 MG/DL Total Protein 4.8 GM/DL Albumin 2.4 GM/DL Calcium Level 7.4 MG/DL Phosphorus Level 1.8 MG/DL Magnesium Level 1.9 MG/DL Alkaline Phosphatase 96 U/L Aspartate Amino Transf (AST/SGOT) 28 U/L Alanine Aminotransferase (ALT/SGPT) 30 U/L Total Bilirubin 0.3 MG/DL Sodium Level 149 MEQ/L Potassium Level 3.3 MEQ/L Chloride Level 118 MEQ/L Carbon Dioxide Level 20.2 MEQ/L Anion Gap 11 MEQ/L Estimat Glomerular Filtration Rate 31 ML/MIN Hemoglobin A1c 10.0 % Lactic Acid Level 1.9 mmol/L Protein Corrected Calcium 8.7 MG/DL Ammonia 51 MCMOL/L Total Creatine Kinase 338 U/L Creatine Kinase MB 4.4 NG/ML Creatine Kinase MB % 1.3 % Troponin I 0.27 NG/ML Triglycerides Level 408 MG/DL Cholesterol Level 145 MG/DL LDL Cholesterol MG/DL HDL Cholesterol 22.9 MG/DL Cholesterol/HDL Ratio 6.33 RATIO Amylase Level 547 U/L Lipase 1651 U/L Free Thyroxine 0.88 NG/DL Random Cortisol 14.6 MCG/DL Blood Gas Puncture Site ART LINE Blood Gas Patient Temperature 98.6 Blood Gas HCO3 19 mmol/L Blood Gas Base Excess -4.5 mmol/L Blood Gas Oxygen Saturation 95 % Arterial Blood pH 7.40 Arterial Blood Partial Pressure CO2 32 mmHg Arterial Blood Partial Pressure O2 95 mmHg Arterial Blood Oxygen Content 15.5 Vol % Arterial Blood Carboxyhemoglobin 1.3 % Arterial Blood Methemoglobin 1.6 % Blood Gas Hemoglobin 11.5 G/DL Oxygen Delivery Device VENTILATOR Blood Gas Ventilator Setting CPAP/EPAP5/IPAP5 Blood Gas Inspired Oxygen 25 % Test 06/20/17 10:50 06/20/17 14:15 06/20/17 17:54 White Blood Count 6.2 TH/MM3 5.5 TH/MM3 Red Blood Count 3.33 MIL/MM3 3.32 MIL/MM3 Hemoglobin 11.1 GM/DL 11.0 GM/DL Hematocrit 31.2 % 30.9 % Mean Corpuscular Volume 93.6 FL 93.2 FL Mean Corpuscular Hemoglobin 33.2 PG 33.2 PG Mean Corpuscular Hemoglobin Concent 35.5 % 35.6 % Red Cell Distribution Width 13.1 % 13.2 % Platelet Count 86 TH/MM3 81 TH/MM3 Mean Platelet Volume 7.7 FL 7.0 FL Neutrophils (%) (Auto) 79.6 % 83.2 % Lymphocytes (%) (Auto) 13.0 % 10.0 % Monocytes (%) (Auto) 7.0 % 6.6 % Eosinophils (%) (Auto) 0.1 % 0.0 % Basophils (%) (Auto) 0.3 % 0.2 % Neutrophils # (Auto) 4.9 TH/MM3 4.6 TH/MM3 Lymphocytes # (Auto) 0.8 TH/MM3 0.5 TH/MM3 Monocytes # (Auto) 0.4 TH/MM3 0.4 TH/MM3 Eosinophils # (Auto) 0.0 TH/MM3 0.0 TH/MM3 Basophils # (Auto) 0.0 TH/MM3 0.0 TH/MM3 CBC Comment AUTO DIFF AUTO DIFF Differential Comment AUTO DIFF CONFIRMED AUTO DIFF CONFIRMED Platelet Estimate LOW LOW Platelet Morphology Comment NORMAL NORMAL Activated Partial Thromboplast Time 37.2 SEC Imaging Last 24 hours Impressions Chest X-Ray 06/20/17 0600 Signed Impressions: Service Date/Time: Tuesday, June 20, 2017 05:23 - CONCLUSION: The lungs are clear. Beltran Bee MD Abdomen/Pelvis CT 06/20/17 0000 Signed Impressions: Service Date/Time: Tuesday, June 20, 2017 15:58 - CONCLUSION: 1. Unremarkable unenhanced CT appearance of the pancreas. No gross peripancreatic inflammatory change, pancreatic ductal dilatation or peripancreatic fluid collections. Please note that CT examination is not sensitive for acute uncomplicated pancreatitis , particularly without IV contrast. 2. Trace bilateral pleural effusions with minimal bibasilar consolidation, likely atelectasis. 3. Very trace free fluid along the inferior margin of the liver. 4. Ancillary findings include colonic diverticulosis, left renal cyst and degenerative spondylosis of the lumbar spine. Monroe Figureoa MD Assessment and Plan Problem List: (1) Respiratory failure ICD Codes: J96.90 - Respiratory failure, unspecified, unspecified whether with hypoxia or hypercapnia Status: Acute (2) Elevated troponin ICD Codes: R74.8 - Abnormal levels of other serum enzymes (3) Sepsis ICD Codes: A41.9 - Sepsis, unspecified organism Status: Acute (4) DKA (diabetic ketoacidoses) ICD Codes: E13.10 - Other specified diabetes mellitus with ketoacidosis without coma Status: Acute (5) Acute metabolic encephalopathy ICD Codes: G93.41 - Metabolic encephalopathy (6) Acute kidney injury ICD Codes: N17.9 - Acute kidney failure, unspecified (7) ETOH abuse ICD Codes: F10.10 - Alcohol abuse, uncomplicated Assessment and Plan Echo with nl LV fx. Off pressors. DC heparin. Possibly withdrawing from ETOH. EEG planned. Continue ICU care. Problem Qualifiers (1) Respiratory failure: Qualified Codes: J96.00 - Acute respiratory failure, unspecified whether with hypoxia or hypercapnia (2) Sepsis: Qualified Codes: A41.9 - Sepsis, unspecified organism (3) DKA (diabetic ketoacidoses): Qualified Codes: E10.11 - Type 1 diabetes mellitus with ketoacidosis with coma Eros Doan MD Jun 20, 2017 18:52
[2017-06-20 21:48] LABS: PHOSPHORUS 2.5 MG/DL (2.5-4.9)
[2017-06-20] MEDS ORDERED: POTASSIUM CHLOR 40 MEQ PREMIX 100 ML IV ONE (23:15)
[2017-06-21] VITALS (22 sets, daily range): BP systolic 91–163; BP diastolic 47–91; PULSE 64–94; RESP 15–17; TEMP 97.5–98.3; O2SAT 95–100
[2017-06-21] MEDS: LACTULOSE SYRUP 20 GM/30 ML CUP PO SCH ×6 (00:02→20:49)
[2017-06-21] MEDS ORDERED: NOREPINEPHRINE 4 MG/D5W 250 ML IV PRN (01:00)
[2017-06-21] MEDS: DEXMEDETOMIDINE INJ 200 MCG in SODIUM CHLORIDE 0.9% INJ 50 ML IV PRN ×5 (01:32→12:08)
[2017-06-21] MEDS: PIPERACIL-TAZO 2.25 GM PREMIX 50 ML IV SCH ×2 (01:59→08:28)
[2017-06-21] MEDS ORDERED: MIDAZOLAM HCL 2 MG/2 ML VIAL IV PUSH PRN (03:00)
[2017-06-21] MEDS ORDERED: fentaNYL DRIP 250 ML IV PRN (03:00)
[2017-06-21] MEDS: SODIUM CHLOR 0.45% 1000 ML INJ 1,000 ML IV SCH ×2 (03:14→20:47)
[2017-06-21] MEDS: RESP: ALBUTEROL 2.5 MG/IPRATROPIUM 0.5 MG NEB (SCH) INH ×6 (03:49→23:22)
[2017-06-21] MEDS: INSULIN NovoLIN REGULAR SUPPLEMENTAL SCALE SQ SCH ×5 (04:11→20:48)
[2017-06-21] MEDS: CHLORHEXIDINE GLUCONATE 2 % 1 PACK (2 CLOTHS) TOP SCH (04:13)
[2017-06-21 06:03] LABS: AUTOMATED NEUTROPHIL # 3.2 TH/MM3 (1.8-7.7); BASOPHIL % 0.3 % (0.0-2.0); HEMATOCRIT 29.5 % (39.0-51.0); HEMOGLOBIN 10.5 GM/DL (13.0-17.0); LYMPH % 16.8 % (9.0-44.0); LYMPHOCYTE # 0.7 TH/MM3 (1.0-4.8); MEAN CORPUSCULAR HEMOGLOBIN 33.4 PG (27.0-34.0); MEAN CORPUSCULAR HGB CONC 35.6 % (32.0-36.0); MEAN PLATELET VOLUME 7.5 FL (7.0-11.0); MONO % 7.7 % (0.0-8.0); MONOCYTE # 0.3 TH/MM3 (0-0.9); NEUT % 75.2 % (16.0-70.0); PLATELET COUNT 87 TH/MM3 (150-450); RED BLOOD COUNT 3.14 MIL/MM3 (4.50-5.90); WHITE BLOOD COUNT 4.2 TH/MM3 (4.0-11.0)
[2017-06-21 06:30] LABS: BICARBONATE 19.7 MEQ/L (21.0-32.0); CALCIUM 8.1 MG/DL (8.5-10.1); CREATININE 1.75 MG/DL (0.60-1.30); MAGNESIUM 2.2 MG/DL (1.5-2.5); PHOSPHORUS 2.9 MG/DL (2.5-4.9)
[2017-06-21] MEDS: METOPROLOL TARTRATE 25 MG TAB PO SCH ×2 (08:27→20:48)
[2017-06-21] MEDS: DOCUSATE SODIUM 50 MG/SENNA 8.6 MG TAB PO SCH ×2 (08:27→20:48)
[2017-06-21] MEDS: FOLIC ACID 1 MG TAB PO SCH (08:27)
[2017-06-21] MEDS: ASPIRIN 81 MG CHEW TAB CHEW SCH (08:27)
[2017-06-21] MEDS: MULTIVITAMIN TAB PO SCH (08:27)
[2017-06-21] MEDS: INSULIN DETEMIR 100 UNITS/ML VIAL SQ SCH ×2 (08:29→20:49)
[2017-06-21] MEDS: SODIUM CHLORIDE 0.9% FLUSH 10 ML FLUSH IV FLUSH SCH ×3 (08:29→20:50)
--- NOTE | 2017-06-21 08:39 | HHI.CCPN ---
Subjective Remarks/Hospital Course 62-year-old male. Date of admission 06/18/2017. Past medical history includes diabetes according to friend per ER physician who is currently unavailable. This individual presented to the emergency room by EMS after he was found unresponsive this morning by his friend in the hotel room. When EMS arrived and checked his blood sugar the meter read high. They brought him unresponsive with GCS of 3. Vital signs were otherwise stable. Patient was in no condition to give any meaningful history. The bedside blood sugar in the emergency room read high as well. There is no family or friend currently with the patient. He was last seen normal last night. Patient received 20 mg etomidate and 100 mg succinylcholine was extubated with a 7.[address] brain revealed no acute intracranial findings. His white blood cell count is 41,000. He has a macrocytosis on his lab draws ammonia levels 161. Received vancomycin and piperacillin/tazobactam in the emergency department. He was started on lactulose 30 cc 4 times daily. EKG revealed normal sinus rhythm 83. Incomplete right bundle branch block. Troponin is currently pending. Creatinine was 2.4. Potassium is 6.3. Sodium was 127. Troponin 0 0.04. TSH 1.19. Patient received 10 mg insulin R and started on a drip currently 8 units an hour. 3 L normal saline wide open. Currently normal saline at 250 cc now. We are asked to admit. Subjective 06/19: Afebrile. Currently resting in bed in no acute distress on sedation. Decreased urine output. Replacing phosphorus this a.m. No bowel movement. Will start on tube feedings with Glucerna 1.5 06/20 Patient remains intubated on no sedation. Off Neosyn and insulin drips. Afebrile. 06/21 Patient remains intubated, on Fentanyl and Precedex drip . renal function is improving with Cr:1.75 today from 2.16. Objective Vital Signs Date Time Temp Pulse Resp B/P (MAP) Pulse Ox O2 Delivery O2 Flow Rate FiO2 06/21/17 07:44 100 25 06/21/17 06:00 68 06/21/17 04:00 98.1 15 109/73 (85) 107/56 (73) 06/18/17 14:12 Ventilator Intake and Output 06/21/17 06/21/17 06/22/17 08:00 16:00 00:00 Intake Total 1623 ml Output Total 1650 ml Balance -27 ml Result Diagram: 06/21/17 0530 06/21/17 0530 Other Results Laboratory Tests Test 06/20/17 08:55 06/20/17 09:40 06/20/17 10:50 06/20/17 14:15 Blood Gas Puncture Site ART LINE Blood Gas Patient Temperature 98.6 Blood Gas HCO3 19 mmol/L Blood Gas Base Excess -4.5 mmol/L Blood Gas Oxygen Saturation 95 % Arterial Blood pH 7.40 Arterial Blood Partial Pressure CO2 32 mmHg Arterial Blood Partial Pressure O2 95 mmHg Arterial Blood Oxygen Content 15.5 Vol % Arterial Blood Carboxyhemoglobin 1.3 % Arterial Blood Methemoglobin 1.6 % Blood Gas Hemoglobin 11.5 G/DL Oxygen Delivery Device VENTILATOR Blood Gas Ventilator Setting CPAP/EPAP5/IPAP5 Blood Gas Inspired Oxygen 25 % Activated Partial Thromboplast Time 42.3 SEC White Blood Count 6.2 TH/MM3 5.5 TH/MM3 Red Blood Count 3.33 MIL/MM3 3.32 MIL/MM3 Hemoglobin 11.1 GM/DL 11.0 GM/DL Hematocrit 31.2 % 30.9 % Mean Corpuscular Volume 93.6 FL 93.2 FL Mean Corpuscular Hemoglobin 33.2 PG 33.2 PG Mean Corpuscular Hemoglobin Concent 35.5 % 35.6 % Red Cell Distribution Width 13.1 % 13.2 % Platelet Count 86 TH/MM3 81 TH/MM3 Mean Platelet Volume 7.7 FL 7.0 FL Neutrophils (%) (Auto) 79.6 % 83.2 % Lymphocytes (%) (Auto) 13.0 % 10.0 % Monocytes (%) (Auto) 7.0 % 6.6 % Eosinophils (%) (Auto) 0.1 % 0.0 % Basophils (%) (Auto) 0.3 % 0.2 % Neutrophils # (Auto) 4.9 TH/MM3 4.6 TH/MM3 Lymphocytes # (Auto) 0.8 TH/MM3 0.5 TH/MM3 Monocytes # (Auto) 0.4 TH/MM3 0.4 TH/MM3 Eosinophils # (Auto) 0.0 TH/MM3 0.0 TH/MM3 Basophils # (Auto) 0.0 TH/MM3 0.0 TH/MM3 CBC Comment AUTO DIFF AUTO DIFF Differential Comment AUTO DIFF CONFIRMED AUTO DIFF CONFIRMED Platelet Estimate LOW LOW Platelet Morphology Comment NORMAL NORMAL Test 06/20/17 17:54 06/20/17 21:00 06/21/17 05:30 Activated Partial Thromboplast Time 37.2 SEC Potassium Level 3.4 MEQ/L 3.8 MEQ/L Phosphorus Level 2.5 MG/DL 2.9 MG/DL White Blood Count 4.2 TH/MM3 Red Blood Count 3.14 MIL/MM3 Hemoglobin 10.5 GM/DL Hematocrit 29.5 % Mean Corpuscular Volume 94.0 FL Mean Corpuscular Hemoglobin 33.4 PG Mean Corpuscular Hemoglobin Concent 35.6 % Red Cell Distribution Width 13.0 % Platelet Count 87 TH/MM3 Mean Platelet Volume 7.5 FL Neutrophils (%) (Auto) 75.2 % Lymphocytes (%) (Auto) 16.8 % Monocytes (%) (Auto) 7.7 % Eosinophils (%) (Auto) 0.0 % Basophils (%) (Auto) 0.3 % Neutrophils # (Auto) 3.2 TH/MM3 Lymphocytes # (Auto) 0.7 TH/MM3 Monocytes # (Auto) 0.3 TH/MM3 Eosinophils # (Auto) 0.0 TH/MM3 Basophils # (Auto) 0.0 TH/MM3 CBC Comment AUTO DIFF Differential Comment AUTO DIFF CONFIRMED Platelet Estimate LOW Platelet Morphology Comment NORMAL Blood Urea Nitrogen 26 MG/DL Creatinine 1.75 MG/DL Random Glucose 278 MG/DL Calcium Level 8.1 MG/DL Magnesium Level 2.2 MG/DL Sodium Level 147 MEQ/L Chloride Level 117 MEQ/L Carbon Dioxide Level 19.7 MEQ/L Anion Gap 10 MEQ/L Estimat Glomerular Filtration Rate 40 ML/MIN Amylase Level 128 U/L Lipase 292 U/L Imaging Last Impressions Chest X-Ray 06/20/17 0600 Signed Impressions: Service Date/Time: Tuesday, June 20, 2017 05:23 - CONCLUSION: The lungs are clear. Beltran Bee MD Abdomen/Pelvis CT 06/20/17 0000 Signed Impressions: Service Date/Time: Tuesday, June 20, 2017 15:58 - CONCLUSION: 1. Unremarkable unenhanced CT appearance of the pancreas. No gross peripancreatic inflammatory change, pancreatic ductal dilatation or peripancreatic fluid collections. Please note that CT examination is not sensitive for acute uncomplicated pancreatitis , particularly without IV contrast. 2. Trace bilateral pleural effusions with minimal bibasilar consolidation, likely atelectasis. 3. Very trace free fluid along the inferior margin of the liver. 4. Ancillary findings include colonic diverticulosis, left renal cyst and degenerative spondylosis of the lumbar spine. Monroe Figueroa MD Head CT 06/18/17 1217 Signed Impressions: Service Date/Time: Sunday, June 18, 2017 12:58 - CONCLUSION: 1. No acute intracranial abnormality. Kushal Aggarwal MD Liver Ultrasound 06/18/17 0000 Signed Impressions: Service Date/Time: Sunday, June 18, 2017 13:50 - CONCLUSION: The liver is normal in size and echogenicity. No evidence of mass. There are large but benign-appearing left renal cyst present.. Elizabeth Javier MD Objective Remarks GENERAL: 62-year-old male currently orotracheally intubated SKIN: Warm and dry. Face and upper extremity are sunburned HEAD: Atraumatic. Normocephalic. EYES: Pupils equal and round about 4 mm bilaterally and reactive. No scleral icterus. No injection or drainage. ENT: No nasal bleeding or discharge. Mucous membranes pink and moist. NECK: Trachea midline. No JVD. Left IJ is clean dry and intact CARDIOVASCULAR: Regular rate and rhythm. S1, S2. No S4. No murmur RESPIRATORY: Tachypneic, using accessory muscles. No wheezing appreciated. GASTROINTESTINAL: Abdomen soft, non-tender, nondistended. Hypoactive bowel sounds are appreciated MUSCULOSKELETAL: Extremities without significant peripheral edema. No obvious deformities. Right femoral arterial line is clean dry and intact NEUROLOGICAL: Cranial nerves II through XII grossly intact. Positive gag and corneal reflex. Positive cough. Withdraws to pain. Moves all 4 extremities on sedation vacation but not following commands. Date of Insertion: Jun 18, 2017 Line: Central Venous Catheter Side: Left Location: Internal, Jugular A/P Assessment and Plan Neuro/Psych: Acute toxic metabolic encephalopathy secondary hyperglycemia and elevated ammonia Off sedation, monitor neuro status CT brain 06/18 revealed no acute intracranial findings Ammonia level is 161 on admission currently 51 Thiamine 100 mg IV daily, folate 1 mg daily and MVI daily EEG showed mod encephalopathy, no epileptiform features. CV: History of hypertension Lactic acidosis Elevated troponin likely type II non-STEMI due to demand ischemia on Lopressor 25mg Q12 monitor HR and BP keep MAP>65mmHg Lactate is currently 1.9 from 4.5 on arrival Cards is following- Dr. Doan. Echo showed EF 55-60% On ASA 81mg daily, off Heparin drip. Resp: Acute hypoxemic [facility] failure [facility]24 Ventilator bundle Albuterol/ipratropium aerosols every 4 hours with albuterol aerosols every 2 hours needed for dyspnea Spontaneous breathing trials as devorah- possible extubation today CXR 06/20- clear lungs GI: Hyperammonia Elevated Lipase level. On Glucerna 1.5 goal 50 cc an hour Famotidine 20 mg daily for GI prophylaxis Docusate sodium/senna 1 tablet twice daily for bowel regimen Lactulose 30 cc every 4 hours for elevated ammonia level. Liver ultrasound revealed no acute finding. Hepatitis panel negative. Monitor Lipase level- now within normal CT abd/pelvis:. No gross peripancreatic inflammatory change, pancreatic ductal dilatation or peripancreatic fluid collections, colonic diverticulosis, left renal cyst. Endo: Diabetic ketoacidosis- resolved Hyperglycemia On SSI medium scale and Levemir 10u BID Renal: Acute kidney injury Hypernatremia Monitor renal function, I/O's, avoid nephrotoxins. Electrolytes replacement as needed Renal function is improving with Cr:1.75 from 2.16, UOP:2450ml in 24 hrs on 04/05 NS@84ml/hr Heme: Leukocytosis neutrophil predominant Normocytic anemia Monitor CBC, coags, follow up on Hep PLT ab. Off Heparin drip. ID: Cystitis On piperacillin/tazobactam monitor for signs of infections ( Fever, WBC) Received 1 dose of vancomycin ED Blood cultures, Influenza screening, strep pneumonia and Legionella urinary Ag all negative MSK: PT evaluate and treat Access -Utilize peripheral IV. Left IJ CVP and right femoral Art line 06/18 Prophylaxis -GI -famotidine -DVT -SCD/off heparin drip. Level 3 Beto Silva MD Jun 21, 2017 08:39
[2017-06-21] MEDS: ARTIFICIAL TEARS OPTH SOLN 15 ML BTL EACH EYE SCH ×3 (09:00→18:00)
[2017-06-21] MEDS: THIAMINE INJ 100 MG in SODIUM CHLORIDE 0.9% INJ 100 ML IV SCH ×2 (10:27→10:34)
[2017-06-21] MEDS: PIPERACIL-TAZO 3.375 GM PREMIX 50 ML IV SCH ×2 (13:01→20:48)
--- NOTE | 2017-06-21 15:22 | PD.CARD.PN ---
Subjective Subjective Remarks Intubated, sedated Objective Medications Current Medications Medications (Trade) Dose Ordered Sig/Buffy Route Start Time Stop Time Status Last Admin Potassium Chloride 100 ml @ 100 mls/hr Q1H PRN IV 06/18/17 12:30 06/19/17 03:58 Potassium Chloride 100 ml @ 50 mls/hr Q2H PRN IV 06/18/17 12:30 Potassium Chloride 100 ml @ 100 mls/hr Q1H PRN IV 06/18/17 12:30 Potassium Chloride 100 ml @ 100 mls/hr Q1H PRN IV 06/18/17 12:30 Potassium Chloride 100 ml @ 50 mls/hr Q2H PRN IV 06/18/17 12:30 Potassium Chloride 100 ml @ 50 mls/hr Q2H PRN IV 06/18/17 12:30 Potassium Chloride 100 ml @ 50 mls/hr Q2H PRN IV 06/18/17 12:30 Potassium Chloride 100 ml @ 50 mls/hr Q2H PRN IV 06/18/17 12:30 (Sodium Bicarbonate 8.4% Inj) 100 meq UNSCH PRN IV PUSH 06/18/17 12:30 06/18/17 13:19 (Sodium Bicarbonate 8.4% Inj) 50 meq UNSCH PRN IV PUSH 06/18/17 12:30 Sodium Phosphate 15 mmol/Sodium Chloride 105 ml @ 25 mls/hr UNSCH PRN IV 06/18/17 12:30 (NS Flush) 2 ml UNSCH PRN IV FLUSH 06/18/17 13:15 (NS Flush) 2 ml BID IV FLUSH 06/18/17 21:00 06/21/17 08:29 (Pepcid Inj) 20 mg Q12HR IV PUSH 06/18/17 21:00 06/20/17 20:18 (Tears Naturale Opth Soln) 1 drop TID EACH EYE 06/18/17 18:00 06/20/17 17:19 (Zofran Inj) 4 mg Q6H PRN IV PUSH 06/18/17 13:15 (Duoneb Neb) 1 ampule Q4HR NEB INH 06/18/17 16:00 06/21/17 11:48 (Albuterol Neb) 2.5 mg Q2HR NEB PRN INH 06/18/17 13:15 Miscellaneous Information 1 Q361D XX 06/18/17 13:15 06/18/17 20:53 (Chlorhexidine 2% Cloth) 3 pack Taper DAILY@04 TOP 06/19/17 04:00 06/15/18 03:59 06/21/17 04:13 (Chlorhexidine 2% Cloth) 3 pack UNSCH PRN TOP 06/18/17 13:15 (Natasha-Colace) 1 tab BID PO 06/18/17 21:00 06/21/17 08:27 (Milk Of Magnesia Liq) 30 ml Q12H PRN PO 06/18/17 13:15 (Senokot) 17.2 mg Q12H PRN PO 06/18/17 13:15 (Dulcolax Supp) 10 mg DAILY PRN RECTAL 06/18/17 13:15 (Lactulose Liq) 30 ml DAILY PRN PO 06/18/17 13:15 06/18/17 20:48 (Peridex 0.12% Liq) 15 ml BID@08,20 MT 06/18/17 20:00 06/20/17 20:23 Thiamine HCl 100 mg/Sodium Chloride 101 ml @ 101 mls/hr DAILY IV 06/19/17 09:00 06/21/17 10:34 (Folate) 1 mg DAILY PO 06/19/17 09:00 06/21/17 08:27 (Theragran) 1 tab DAILY PO 06/19/17 09:00 06/21/17 08:27 (Brethine Inj) 1 mg UNSCH PRN SQ 06/18/17 16:30 (NS Flush) DAILY IV FLUSH 06/18/17 17:00 06/20/17 09:00 (NS Flush) UNSCH PRN IV FLUSH 06/18/17 17:00 (Aspirin Chew) 81 mg DAILY CHEW 06/20/17 09:00 06/21/17 08:27 (Levemir Inj) 10 units BID SQ 06/20/17 21:00 06/21/17 08:29 (Lactulose Liq) 30 ml Q4H PO 06/20/17 13:00 06/21/17 13:02 (D50w (Vial) Inj) 50 ml UNSCH PRN IV PUSH 06/20/17 09:30 (Glucagon Inj) 1 mg UNSCH PRN OTHER 06/20/17 09:30 (NovoLIN R SUPPLEMENTAL SCALE) 1 Q4HR SQ 06/20/17 09:30 06/21/17 08:45 Sodium Chloride 1,000 ml @ 84 mls/hr [id number] IV 06/20/17 09:30 06/21/17 03:14 (Lopressor) 25 mg Q12HR PO 06/20/17 10:00 06/21/17 08:27 (Apresoline Inj) 10 mg Q6H PRN IV PUSH 06/20/17 10:00 06/20/17 12:46 Dexmedetomidine HCl 200 mcg/ Sodium Chloride 52 ml @ 3.93 mls/hr TITRATE PRN IV 06/20/17 14:15 06/21/17 12:08 Norepinephrine Bitartrate 250 ml @ 7.5 mls/hr TITRATE PRN IV 06/21/17 01:00 06/21/17 01:31 Fentanyl Citrate 250 ml @ 5 mls/hr TITRATE PRN IV 06/21/17 03:00 06/21/17 03:01 (Versed Inj) 2 mg Q1H PRN IV PUSH 06/21/17 03:00 Piperacillin Sod/ Tazobactam Sod 50 ml @ 100 mls/hr Q6H IV 06/21/17 14:00 06/21/17 13:01 Vital Signs / I&O Vital Signs Date Time Temp Pulse Resp B/P (MAP) Pulse Ox O2 Delivery O2 Flow Rate FiO2 06/21/17 14:41 97 Nasal Cannula 4 06/21/17 14:40 97 Nasal Cannula 4.00 06/21/17 14:00 66 06/21/17 13:57 25 06/21/17 13:00 65 98/65 (76) 101/55 (70) 06/21/17 12:00 97.7 64 15 96/63 (74) 100 99/55 (70) 06/21/17 12:00 64 06/21/17 12:00 25 06/21/17 11:33 100 25 06/21/17 10:00 66 06/21/17 08:00 25 06/21/17 08:00 68 06/21/17 08:00 98.2 68 15 115/79 (91) 100 121/63 (82) 06/21/17 07:44 100 25 06/21/17 07:00 67 99/57 (71) 102/47 (65) 06/21/17 06:00 68 06/21/17 04:36 100 25 06/21/17 04:00 98.1 68 15 109/73 (85) 100 107/56 (73) 18 04:00 75 06/21/17 04:00 25 06/21/17 02:00 75 06/21/17 01:50 100 25 18 01:31 71 100/53 06/21/17 01:00 71 97/51 (66) 06/21/17 00:00 69 06/21/17 00:00 97.5 69 15 96/64 (75) 100 91/47 (62) 06/21/17 00:00 25 06/20/17 23:10 100 25 06/20/17 22:00 71 06/20/17 20:15 100 25 06/20/17 20:00 74 06/20/17 20:00 98.9 74 15 102/63 (76) 100 106/62 (77) 06/20/17 20:00 25 18 19:00 86 159/92 (114) 18 18:00 75 18 16:20 100 25 18 16:19 100 100 18 16:00 25 18 16:00 100.2 91 18 142/79 (100) 100 06/20/17 16:00 91 I/O 18 18 18 06/21/17 06/21/17 06/21/17 07:00 15:00 23:00 07:00 15:00 23:00 Intake Total 201 ml 1099 ml 1623 ml Output Total 950 ml 1600 ml 1650 ml Balance -950 ml 201 ml -501 ml -27 ml Intake Oral 0 ml IV Total 201 ml 867 ml 1150 ml Tube Feeding 32 ml 373 ml Tube Irrigant 200 ml Other 100 ml Output Urine Total 950 ml 1300 ml 1150 ml Stool Total 300 ml 500 ml # Bowel Movements 2 3 Physical Exam GENERAL: Intubated, on the vent SKIN: Warm and dry. HEAD: Normocephalic. EYES: No scleral icterus. No injection or drainage. NECK: Supple, trachea midline. No JVD or lymphadenopathy. CARDIOVASCULAR: Regular rate and rhythm without murmurs, gallops, or rubs. RESPIRATORY: Breath sounds equal bilaterally. No accessory muscle use. GASTROINTESTINAL: Abdomen soft, non-tender, nondistended. MUSCULOSKELETAL: No cyanosis, or edema. Laboratory Laboratory Tests Test 06/20/17 17:54 06/20/17 21:00 06/21/17 05:30 06/21/17 12:50 Activated Partial Thromboplast Time 37.2 SEC Potassium Level 3.4 MEQ/L 3.8 MEQ/L Phosphorus Level 2.5 MG/DL 2.9 MG/DL White Blood Count 4.2 TH/MM3 Red Blood Count 3.14 MIL/MM3 Hemoglobin 10.5 GM/DL Hematocrit 29.5 % Mean Corpuscular Volume 94.0 FL Mean Corpuscular Hemoglobin 33.4 PG Mean Corpuscular Hemoglobin Concent 35.6 % Red Cell Distribution Width 13.0 % Platelet Count 87 TH/MM3 Mean Platelet Volume 7.5 FL Neutrophils (%) (Auto) 75.2 % Lymphocytes (%) (Auto) 16.8 % Monocytes (%) (Auto) 7.7 % Eosinophils (%) (Auto) 0.0 % Basophils (%) (Auto) 0.3 % Neutrophils # (Auto) 3.2 TH/MM3 Lymphocytes # (Auto) 0.7 TH/MM3 Monocytes # (Auto) 0.3 TH/MM3 Eosinophils # (Auto) 0.0 TH/MM3 Basophils # (Auto) 0.0 TH/MM3 CBC Comment AUTO DIFF Differential Comment AUTO DIFF CONFIRMED Platelet Estimate LOW Platelet Morphology Comment NORMAL Blood Urea Nitrogen 26 MG/DL Creatinine 1.75 MG/DL Random Glucose 278 MG/DL Calcium Level 8.1 MG/DL Magnesium Level 2.2 MG/DL Sodium Level 147 MEQ/L Chloride Level 117 MEQ/L Carbon Dioxide Level 19.7 MEQ/L Anion Gap 10 MEQ/L Estimat Glomerular Filtration Rate 40 ML/MIN Amylase Level 128 U/L Lipase 292 U/L Urine Eosinophils NONE SEEN /HPF Assessment and Plan Problem List: (1) Respiratory failure ICD Codes: J96.90 - Respiratory failure, unspecified, unspecified whether with hypoxia or hypercapnia Status: Acute (2) Elevated troponin ICD Codes: R74.8 - Abnormal levels of other serum enzymes (3) Sepsis ICD Codes: A41.9 - Sepsis, unspecified organism Status: Acute (4) DKA (diabetic ketoacidoses) ICD Codes: E13.10 - Other specified diabetes mellitus with ketoacidosis without coma Status: Acute (5) Acute metabolic encephalopathy ICD Codes: G93.41 - Metabolic encephalopathy (6) Acute kidney injury ICD Codes: N17.9 - Acute kidney failure, unspecified (7) ETOH abuse ICD Codes: F10.10 - Alcohol abuse, uncomplicated Assessment and Plan No new cardiac issues. Echo with nl LV fx. Rhythm stable. Possibly withdrawing from ETOH. Continue ICU care. Problem Qualifiers (1) Respiratory failure: Qualified Codes: J96.00 - Acute respiratory failure, unspecified whether with hypoxia or hypercapnia (2) Sepsis: Qualified Codes: A41.9 - Sepsis, unspecified organism (3) DKA (diabetic ketoacidoses): Qualified Codes: E10.11 - Type 1 diabetes mellitus with ketoacidosis with coma Eros Doan MD Jun 21, 2017 15:22
[2017-06-21 15:39] LABS: HEPARIN INDUCED PLATELET AB NEGATIVE (NEGATIVE)
[2017-06-21] MEDS ORDERED: HALOPERIDOL LACTATE 5 MG/ML AMP IV PUSH ONE (17:45)
[2017-06-21] MEDS: CHLORHEXIDINE 0.12% (ORAL KIT) 15 ML CUP MT SCH (20:00)
[2017-06-21] MEDS: FAMOTIDINE 20 MG/2 ML VIAL IV PUSH SCH (20:58)
[2017-06-21] MEDS: hydrALAZINE HCL 20 MG/ML VIAL IV PUSH PRN (22:53)
[2017-06-22] VITALS (10 sets, daily range): BP systolic 126–182; BP diastolic 73–97; PULSE 87–106; RESP 17–24; TEMP 98.3–99.7; O2SAT 95–99
[2017-06-22] MEDS: INSULIN NovoLIN REGULAR SUPPLEMENTAL SCALE SQ SCH ×6 (00:19→20:00)
[2017-06-22] MEDS: LACTULOSE SYRUP 20 GM/30 ML CUP PO SCH ×6 (00:20→21:24)
[2017-06-22] MEDS: PIPERACIL-TAZO 3.375 GM PREMIX 50 ML IV SCH ×4 (01:57→21:30)
[2017-06-22] MEDS: RESP: ALBUTEROL 2.5 MG/IPRATROPIUM 0.5 MG NEB (SCH) INH ×2 (03:51→07:32)
[2017-06-22] MEDS: CHLORHEXIDINE GLUCONATE 2 % 1 PACK (2 CLOTHS) TOP SCH ×2 (04:09→21:28)
[2017-06-22 05:21] LABS: AUTOMATED NEUTROPHIL # 4.4 TH/MM3 (1.8-7.7); BASOPHIL % 0.3 % (0.0-2.0); EOSINOPHIL % 0.1 % (0.0-4.0); HEMATOCRIT 28.2 % (39.0-51.0); HEMOGLOBIN 10.1 GM/DL (13.0-17.0); LYMPH % 11.5 % (9.0-44.0); LYMPHOCYTE # 0.6 TH/MM3 (1.0-4.8); MEAN CELL VOLUME 94.3 FL (80.0-100.0); MEAN CORPUSCULAR HEMOGLOBIN 33.8 PG (27.0-34.0); MEAN CORPUSCULAR HGB CONC 35.8 % (32.0-36.0); MEAN PLATELET VOLUME 7.5 FL (7.0-11.0); MONO % 8.8 % (0.0-8.0); MONOCYTE # 0.5 TH/MM3 (0-0.9); NEUT % 79.3 % (16.0-70.0); PLATELET COUNT 105 TH/MM3 (150-450); RED BLOOD COUNT 2.99 MIL/MM3 (4.50-5.90); RED CELL DISTRIBUTION WIDTH 12.9 % (11.6-17.2); WHITE BLOOD COUNT 5.6 TH/MM3 (4.0-11.0)
[2017-06-22 05:40] LABS: BICARBONATE 23.1 MEQ/L (21.0-32.0); CALCIUM 8.1 MG/DL (8.5-10.1); CREATININE 1.52 MG/DL (0.60-1.30); MAGNESIUM 2.2 MG/DL (1.5-2.5); PHOSPHORUS 1.7 MG/DL (2.5-4.9)
[2017-06-22] MEDS: hydrALAZINE HCL 20 MG/ML VIAL IV PUSH PRN ×2 (06:00→10:42)
[2017-06-22] MEDS: MULTIVITAMIN TAB PO SCH (07:59)
[2017-06-22] MEDS: CHLORHEXIDINE 0.12% (ORAL KIT) 15 ML CUP MT SCH ×2 (08:00→20:00)
[2017-06-22] MEDS: ASPIRIN 81 MG CHEW TAB CHEW SCH (08:00)
[2017-06-22] MEDS: FOLIC ACID 1 MG TAB PO SCH (08:00)
[2017-06-22] MEDS: METOPROLOL TARTRATE 25 MG TAB PO SCH ×2 (08:00→21:25)
[2017-06-22] MEDS: SODIUM CHLORIDE 0.9% FLUSH 10 ML FLUSH IV FLUSH SCH ×2 (09:00→21:29)
[2017-06-22] MEDS: DOCUSATE SODIUM 50 MG/SENNA 8.6 MG TAB PO SCH ×2 (09:00→21:25)
[2017-06-22] MEDS: INSULIN DETEMIR 100 UNITS/ML VIAL SQ SCH ×3 (09:00→21:28)
[2017-06-22] MEDS ORDERED: LORazepam 2 MG/ML VIAL IV PUSH PRN (09:30)
[2017-06-22] MEDS ORDERED: POTASSIUM PHOSPHATE INJ 15 MMOL in SODIUM CHLORIDE 0.9% INJ 150 ML IV ONE (09:30)
[2017-06-22] MEDS: SODIUM CHLOR 0.45% 1000 ML INJ 1,000 ML IV SCH (09:45)
--- NOTE | 2017-06-22 09:54 | HHI.CCPN ---
Subjective Remarks/Hospital Course 62-year-old male. Date of admission 06/18/2017. Past medical history includes diabetes according to friend per ER physician who is currently unavailable. This individual presented to the emergency room by EMS after he was found unresponsive this morning by his friend in the hotel room. When EMS arrived and checked his blood sugar the meter read high. They brought him unresponsive with GCS of 3. Vital signs were otherwise stable. Patient was in no condition to give any meaningful history. The bedside blood sugar in the emergency room read high as well. There is no family or friend currently with the patient. He was last seen normal last night. Patient received 20 mg etomidate and 100 mg succinylcholine was extubated with a 7.[address] brain revealed no acute intracranial findings. His white blood cell count is 41,000. He has a macrocytosis on his lab draws ammonia levels 161. Received vancomycin and piperacillin/tazobactam in the emergency department. He was started on lactulose 30 cc 4 times daily. EKG revealed normal sinus rhythm 83. Incomplete right bundle branch block. Troponin is currently pending. Creatinine was 2.4. Potassium is 6.3. Sodium was 127. Troponin 0 0.04. TSH 1.19. Patient received 10 mg insulin R and started on a drip currently 8 units an hour. 3 L normal saline wide open. Currently normal saline at 250 cc now. We are asked to admit. Subjective 06/19: Afebrile. Currently resting in bed in no acute distress on sedation. Decreased urine output. Replacing phosphorus this a.m. No bowel movement. Will start on tube feedings with Glucerna 1.5 06/20 Patient remains intubated on no sedation. Off Neosyn and insulin drips. Afebrile. 06/21 Patient remains intubated, on Fentanyl and Precedex drip . renal function is improving with Cr:1.75 today from 2.16. 06/22: Self extubated yesterday tolerating well. Alert awake breathing comfortably creatinine continues to improve 1.5 today. Urine output is adequate Objective Vital Signs Date Time Temp Pulse Resp B/P (MAP) Pulse Ox O2 Delivery O2 Flow Rate FiO2 06/22/17 08:00 98.9 06/22/17 08:00 97 21 182/88 (119) 96 3/21/18 07:42 21 06/21/17 19:55 Nasal Cannula 2.00 Intake and Output 06/22/17 06/22/17 06/23/17 08:00 16:00 00:00 Intake Total 530 ml Output Total 1075 ml Balance -545 ml Result Diagram: 06/22/17 0435 06/22/17 0435 Imaging Last Impressions Chest X-Ray 06/20/17 0600 Signed Impressions: Service Date/Time: Tuesday, June 20, 2017 05:23 - CONCLUSION: The lungs are clear. Beltran Bee MD Abdomen/Pelvis CT 06/20/17 0000 Signed Impressions: Service Date/Time: Tuesday, June 20, 2017 15:58 - CONCLUSION: 1. Unremarkable unenhanced CT appearance of the pancreas. No gross peripancreatic inflammatory change, pancreatic ductal dilatation or peripancreatic fluid collections. Please note that CT examination is not sensitive for acute uncomplicated pancreatitis , particularly without IV contrast. 2. Trace bilateral pleural effusions with minimal bibasilar consolidation, likely atelectasis. 3. Very trace free fluid along the inferior margin of the liver. 4. Ancillary findings include colonic diverticulosis, left renal cyst and degenerative spondylosis of the lumbar spine. Monroe Figueroa MD Head CT 06/18/17 1217 Signed Impressions: Service Date/Time: Sunday, June 18, 2017 12:58 - CONCLUSION: 1. No acute intracranial abnormality. Kushal Aggarwal MD Liver Ultrasound 06/18/17 0000 Signed Impressions: Service Date/Time: Sunday, June 18, 2017 13:50 - CONCLUSION: The liver is normal in size and echogenicity. No evidence of mass. There are large but benign-appearing left renal cyst present.. Elizabeth Javier MD Objective Remarks GENERAL: 62-year-old male currently lying in bed on NC SKIN: Warm and dry. Face and upper extremity are sunburned HEAD: Atraumatic. Normocephalic. EYES: Pupils equal and round about 4 mm bilaterally and reactive. No scleral icterus. No injection or drainage. ENT: No nasal bleeding or discharge. Mucous membranes dry NECK: Trachea midline. No JVD. Left IJ is clean dry and intact CARDIOVASCULAR: Regular rate and rhythm. S1, S2. No S4. No murmur RESPIRATORY: Breathing comfortably no wheezes or crackles GASTROINTESTINAL: Abdomen soft, non-tender, nondistended. Hypoactive bowel sounds are appreciated MUSCULOSKELETAL: Extremities without significant peripheral edema. NEUROLOGICAL: Alert awake. Moves all extremities follows commands no focal deficit Date of Insertion: Jun 18, 2017 Line: Central Venous Catheter Side: Left Location: Internal, Jugular A/P Assessment and Plan Neuro/Psych: Acute toxic metabolic encephalopathy secondary hyperglycemia and elevated ammonia Off sedation, monitor neuro status CT brain 06/18 revealed no acute intracranial findings Ammonia level is 161 on admission currently 51 Thiamine 100 mg IV daily, folate 1 mg daily and MVI daily EEG showed mod encephalopathy, no epileptiform features. Watch for alcohol withdrawal. Use Ativan PRN CV: History of hypertension Lactic acidosis-resolved Elevated troponin likely type II non-STEMI due to demand ischemia on Lopressor 25mg Q12 monitor HR and BP keep MAP>65mmHg Lactate is currently 1.9 from 4.5 on arrival Cards is following- Dr. Doan. Echo showed EF 55-60% On ASA 81mg daily, off Heparin drip. Resp: Acute hypoxemic respiratory failure Albuterol/ipratropium aerosols every 2 hours needed for dyspnea Prior to planned extubation patient self extubated on 06/21/2017 CXR 06/20- clear lungs GI: Hyperammonemia Elevated Lipase level. Bedside swallow eval when 1800 ADA diet Famotidine 20 mg daily for GI prophylaxis Docusate sodium/senna 1 tablet twice daily for bowel regimen Lactulose 30 cc every 4 hours for elevated ammonia level. Liver ultrasound revealed no acute finding. Hepatitis panel negative. Monitor Lipase level- now within normal CT abd/pelvis:. No gross peripancreatic inflammatory change, pancreatic ductal dilatation or peripancreatic fluid collections, colonic diverticulosis, left renal cyst. Endo: Diabetic ketoacidosis- resolved Hyperglycemia Hypokalemia/hypophosphatemia On SSI medium scale and Levemir 10u BID Electrolyte replacement per protocol Renal: Acute kidney injury Hypernatremia Monitor renal function, I/O's, avoid nephrotoxins. Electrolytes replacement as needed Renal function is improving with Cr: 1.5 today on 04/05 NS@84ml/hr Heme: Leukocytosis neutrophil predominant Normocytic anemia Monitor CBC, coags, follow up on Hep PLT ab. Off Heparin drip. ID: Cystitis On piperacillin/tazobactam monitor for signs of infections ( Fever, WBC) Received 1 dose of vancomycin ED Sputum --beta strep Blood cultures Influenza screening, strep pneumonia and Legionella urinary Ag all negative MSK: PT evaluate and treat, OOB Access -Utilize peripheral IV. Left IJ CVP and right femoral Art line 06/18-DC both Prophylaxis -GI -famotidine -DVT -SCD.. Screen is negative start Lovenox 40 mg subcu daily Level 2 Consult [facility] to assume care in am. Transfer to [facility] with Tele Diana Alford MD Jun 22, 2017 09:53
[2017-06-22] MEDS: FAMOTIDINE 20 MG/2 ML VIAL IV PUSH SCH ×2 (10:02→21:27)
[2017-06-22] MEDS: THIAMINE INJ 100 MG in SODIUM CHLORIDE 0.9% INJ 100 ML IV SCH (10:02)
[2017-06-22] MEDS: ENOXAPARIN SODIUM 40 MG/0.4 ML SYRINGE SQ SCH (10:35)
--- NOTE | 2017-06-22 18:51 | PD.CARD.PN ---
Subjective Subjective Remarks Extubated, denies CP or SOB, wants to go home Objective Medications Current Medications Medications (Trade) Dose Ordered Sig/Buffy Route Start Time Stop Time Status Last Admin Sodium Phosphate 15 mmol/Sodium Chloride 105 ml @ 25 mls/hr UNSCH PRN IV 06/18/17 12:30 (NS Flush) 2 ml UNSCH PRN IV FLUSH 06/18/17 13:15 (NS Flush) 2 ml BID IV FLUSH 06/18/17 21:00 06/21/17 20:50 (Tears Naturale Opth Soln) 1 drop TID EACH EYE 06/18/17 18:00 06/20/17 17:19 (Zofran Inj) 4 mg Q6H PRN IV PUSH 06/18/17 13:15 (Albuterol Neb) 2.5 mg Q2HR NEB PRN INH 06/18/17 13:15 Miscellaneous Information 1 Q361D XX 06/18/17 13:15 06/18/17 20:53 (Chlorhexidine 2% Cloth) 3 pack Taper DAILY@04 TOP 06/19/17 04:00 06/15/18 03:59 06/22/17 04:09 (Chlorhexidine 2% Cloth) 3 pack UNSCH PRN TOP 06/18/17 13:15 (Natasha-Colace) 1 tab BID PO 06/18/17 21:00 06/21/17 20:48 (Milk Of Magnesia Liq) 30 ml Q12H PRN PO 06/18/17 13:15 (Senokot) 17.2 mg Q12H PRN PO 06/18/17 13:15 (Dulcolax Supp) 10 mg DAILY PRN RECTAL 06/18/17 13:15 (Lactulose Liq) 30 ml DAILY PRN PO 06/18/17 13:15 06/18/17 20:48 (Peridex 0.12% Liq) 15 ml BID@08,20 MT 06/18/17 20:00 06/20/17 20:23 Thiamine HCl 100 mg/Sodium Chloride 101 ml @ 101 mls/hr DAILY IV 06/19/17 09:00 06/22/17 10:02 (Folate) 1 mg DAILY PO 06/19/17 09:00 06/22/17 08:00 (Theragran) 1 tab DAILY PO 06/19/17 09:00 06/22/17 07:59 (Brethine Inj) 1 mg UNSCH PRN SQ 06/18/17 16:30 (NS Flush) DAILY IV FLUSH 06/18/17 17:00 06/20/17 09:00 (NS Flush) UNSCH PRN IV FLUSH 06/18/17 17:00 (Aspirin Chew) 81 mg DAILY CHEW 06/20/17 09:00 06/22/17 08:00 (Levemir Inj) 10 units BID SQ 06/20/17 21:00 06/21/17 20:49 (Lactulose Liq) 30 ml Q4H PO 06/20/17 13:00 06/22/17 16:09 (D50w (Vial) Inj) 50 ml UNSCH PRN IV PUSH 06/20/17 09:30 (Glucagon Inj) 1 mg UNSCH PRN OTHER 06/20/17 09:30 (NovoLIN R SUPPLEMENTAL SCALE) 1 Q4HR SQ 06/20/17 09:30 06/22/17 16:00 (Lopressor) 25 mg Q12HR PO 06/20/17 10:00 06/22/17 08:00 (Apresoline Inj) 10 mg Q6H PRN IV PUSH 06/20/17 10:00 06/22/17 10:42 Piperacillin Sod/ Tazobactam Sod 50 ml @ 100 mls/hr Q6H IV 06/21/17 14:00 06/22/17 14:00 (Pepcid Inj) 10 mg Q12HR IV PUSH 06/21/17 21:00 06/22/17 10:02 (Ativan Inj) 1 mg Q2H PRN IV PUSH 06/22/17 09:30 (Lovenox Inj) 40 mg Q24H SQ 06/22/17 11:00 Vital Signs / I&O Vital Signs Date Time Temp Pulse Resp B/P (MAP) Pulse Ox O2 Delivery O2 Flow Rate FiO2 06/22/17 18:00 98.5 96 22 176/97 (123) 99 06/22/17 16:00 98.3 95 24 126/73 (90) 97 06/22/17 16:00 95 06/22/17 12:00 98.7 96 22 163/76 (105) 95 06/22/17 12:00 97 06/22/17 08:00 98.9 06/22/17 08:00 98.9 97 21 182/88 (119) 96 06/22/17 08:00 97 06/22/17 07:42 95 21 06/22/17 06:00 92 06/22/17 04:00 97 06/22/17 04:00 98.9 97 18 152/79 (103) 98 06/22/17 02:00 105 06/22/17 00:00 99.7 106 17 146/73 (97) 99 06/22/17 00:00 106 06/21/17 22:00 94 06/21/17 20:00 98.3 82 15 163/91 (115) 95 Arterial Line 06/21/17 20:00 82 06/21/17 19:55 100 Nasal Cannula 2.00 I/O 06/21/17 06/21/17 06/21/17 06/22/17 06/22/17 06/22/17 07:00 15:00 23:00 07:00 15:00 23:00 Intake Total 1623 ml 883.3 ml 2300 ml 530 ml 100 ml 480 ml Output Total 1650 ml 1400 ml 1075 ml 600 ml Balance -27 ml 883.3 ml 900 ml -545 ml 100 ml -120 ml Intake Oral 30 ml 480 ml 480 ml IV Total 1150 ml 883.3 ml 2058 ml 50 ml 100 ml Tube Feeding 373 ml 212 ml Other 100 ml Output Urine Total 1150 ml 1000 ml 725 ml 600 ml Stool Total 500 ml 400 ml 350 ml # Voids 4 2 # Bowel Movements 3 Physical Exam GENERAL: In NAD SKIN: Warm and dry. HEAD: Normocephalic. EYES: No scleral icterus. No injection or drainage. NECK: Supple, trachea midline. No JVD or lymphadenopathy. CARDIOVASCULAR: Regular rate and rhythm without murmurs, gallops, or rubs. RESPIRATORY: Breath sounds equal bilaterally. No accessory muscle use. GASTROINTESTINAL: Abdomen soft, non-tender, nondistended. MUSCULOSKELETAL: No cyanosis, or edema. Laboratory Laboratory Tests Test 06/22/17 04:35 White Blood Count 5.6 TH/MM3 Red Blood Count 2.99 MIL/MM3 Hemoglobin 10.1 GM/DL Hematocrit 28.2 % Mean Corpuscular Volume 94.3 FL Mean Corpuscular Hemoglobin 33.8 PG Mean Corpuscular Hemoglobin Concent 35.8 % Red Cell Distribution Width 12.9 % Platelet Count 105 TH/MM3 Mean Platelet Volume 7.5 FL Neutrophils (%) (Auto) 79.3 % Lymphocytes (%) (Auto) 11.5 % Monocytes (%) (Auto) 8.8 % Eosinophils (%) (Auto) 0.1 % Basophils (%) (Auto) 0.3 % Neutrophils # (Auto) 4.4 TH/MM3 Lymphocytes # (Auto) 0.6 TH/MM3 Monocytes # (Auto) 0.5 TH/MM3 Eosinophils # (Auto) 0.0 TH/MM3 Basophils # (Auto) 0.0 TH/MM3 CBC Comment DIFF FINAL Differential Comment Blood Urea Nitrogen 21 MG/DL Creatinine 1.52 MG/DL Random Glucose 132 MG/DL Calcium Level 8.1 MG/DL Phosphorus Level 1.7 MG/DL Magnesium Level 2.2 MG/DL Sodium Level 149 MEQ/L Potassium Level 3.2 MEQ/L Chloride Level 117 MEQ/L Carbon Dioxide Level 23.1 MEQ/L Anion Gap 9 MEQ/L Estimat Glomerular Filtration Rate 47 ML/MIN Assessment and Plan Problem List: (1) Respiratory failure ICD Codes: J96.90 - Respiratory failure, unspecified, unspecified whether with hypoxia or hypercapnia Status: Acute (2) Elevated troponin ICD Codes: R74.8 - Abnormal levels of other serum enzymes (3) Sepsis ICD Codes: A41.9 - Sepsis, unspecified organism Status: Acute (4) DKA (diabetic ketoacidoses) ICD Codes: E13.10 - Other specified diabetes mellitus with ketoacidosis without coma Status: Acute (5) Acute metabolic encephalopathy ICD Codes: G93.41 - Metabolic encephalopathy (6) Acute kidney injury ICD Codes: N17.9 - Acute kidney failure, unspecified (7) ETOH abuse ICD Codes: F10.10 - Alcohol abuse, uncomplicated Assessment and Plan No new cardiac issues, successfully extubated and stable. Echo with nl LV fx. Rhythm stable. Increase activity, PT. Counseled to quit drinking ETOH. D/w pt and mother. Problem Qualifiers (1) Respiratory failure: Qualified Codes: J96.00 - Acute respiratory failure, unspecified whether with hypoxia or hypercapnia (2) Sepsis: Qualified Codes: A41.9 - Sepsis, unspecified organism (3) DKA (diabetic ketoacidoses): Qualified Codes: E10.11 - Type 1 diabetes mellitus with ketoacidosis with coma Eros Doan MD Jun 22, 2017 18:51
[2017-06-23] VITALS: BP 176/94; PULSE 88; RESP 20; TEMP 98.8; O2SAT 96
[2017-06-23] MEDS: LACTULOSE SYRUP 20 GM/30 ML CUP PO SCH ×4 (00:12→11:05)
[2017-06-23] MEDS: INSULIN NovoLIN REGULAR SUPPLEMENTAL SCALE SQ SCH ×5 (00:12→20:00)
[2017-06-23] MEDS: hydrALAZINE HCL 20 MG/ML VIAL IV PUSH PRN (00:47)
[2017-06-23] MEDS: PIPERACIL-TAZO 3.375 GM PREMIX 50 ML IV SCH ×2 (01:55→10:28)
[2017-06-23 04:00] VITALS: BP 165/89; PULSE 82; RESP 20; TEMP 98.5; O2SAT 95
[2017-06-23 08:00] VITALS: BP 184/104; PULSE 81; RESP 18; TEMP 98.6; O2SAT 97
[2017-06-23] MEDS: CHLORHEXIDINE 0.12% (ORAL KIT) 15 ML CUP MT SCH (08:00)
[2017-06-23 08:09] LABS: AUTOMATED NEUTROPHIL # 6.7 TH/MM3 (1.8-7.7); BASOPHIL % 0.5 % (0.0-2.0); EOSINOPHIL # 0.1 TH/MM3 (0-0.4); EOSINOPHIL % 0.6 % (0.0-4.0); HEMATOCRIT 34.9 % (39.0-51.0); HEMOGLOBIN 12.1 GM/DL (13.0-17.0); LYMPH % 11.3 % (9.0-44.0); MEAN CELL VOLUME 95.1 FL (80.0-100.0); MEAN CORPUSCULAR HEMOGLOBIN 32.9 PG (27.0-34.0); MEAN CORPUSCULAR HGB CONC 34.6 % (32.0-36.0); MEAN PLATELET VOLUME 8.9 FL (7.0-11.0); MONO % 12.3 % (0.0-8.0); MONOCYTE # 1.1 TH/MM3 (0-0.9); NEUT % 75.3 % (16.0-70.0); PLATELET COUNT 141 TH/MM3 (150-450); RED BLOOD COUNT 3.67 MIL/MM3 (4.50-5.90); RED CELL DISTRIBUTION WIDTH 13.1 % (11.6-17.2); WHITE BLOOD COUNT 8.9 TH/MM3 (4.0-11.0)
[2017-06-23 08:21] LABS: ALBUMIN 2.6 GM/DL (3.4-5.0); ALKALINE PHOSPHATASE 171 U/L (45-117); ALT (GPT) 80 U/L (12-78); AST (GOT) 66 U/L (15-37); BICARBONATE 21.2 MEQ/L (21.0-32.0); CALCIUM 8.3 MG/DL (8.5-10.1); CHLORIDE 111 MEQ/L (98-107); CREATININE 1.33 MG/DL (0.60-1.30); GLOMERULAR FILTRATION RATE 55 ML/MIN (>89); GLUCOSE,RANDOM 233 MG/DL (74-106); MAGNESIUM 2.3 MG/DL (1.5-2.5); PHOSPHORUS 3.4 MG/DL (2.5-4.9); SODIUM (NA) 144 MEQ/L (136-145); TOTAL BILIRUBIN ADULT 0.7 MG/DL (0.2-1.0); TOTAL PROTEIN 6.2 GM/DL (6.4-8.2)
[2017-06-23 08:26] LABS: BLOOD UREA NITROGEN 19 MG/DL (7-18)
[2017-06-23] MEDS: SODIUM CHLORIDE 0.9% FLUSH 10 ML FLUSH IV FLUSH SCH ×3 (09:00→21:00)
[2017-06-23] MEDS: FAMOTIDINE 20 MG/2 ML VIAL IV PUSH SCH (10:29)
[2017-06-23] MEDS: METOPROLOL TARTRATE 25 MG TAB PO SCH ×2 (10:29→22:20)
[2017-06-23] MEDS: MULTIVITAMIN TAB PO SCH (10:29)
[2017-06-23] MEDS: DOCUSATE SODIUM 50 MG/SENNA 8.6 MG TAB PO SCH ×2 (10:29→21:00)
[2017-06-23] MEDS: FOLIC ACID 1 MG TAB PO SCH (10:29)
[2017-06-23] MEDS: INSULIN DETEMIR 100 UNITS/ML VIAL SQ SCH ×2 (10:30→22:19)
[2017-06-23] MEDS: ENOXAPARIN SODIUM 40 MG/0.4 ML SYRINGE SQ SCH (10:30)
[2017-06-23] MEDS: ASPIRIN 81 MG CHEW TAB CHEW SCH (10:31)
[2017-06-23 12:00] VITALS: BP 168/87; PULSE 83; RESP 18; TEMP 98.3; O2SAT 100
--- NOTE | 2017-06-23 13:35 | PD.CARD.PN ---
Subjective Subjective Remarks No CP or SOB, feels better Objective Medications Current Medications Medications (Trade) Dose Ordered Sig/Buffy Route Start Time Stop Time Status Last Admin Sodium Phosphate 15 mmol/Sodium Chloride 105 ml @ 25 mls/hr UNSCH PRN IV 06/18/17 12:30 (NS Flush) 2 ml UNSCH PRN IV FLUSH 06/18/17 13:15 (NS Flush) 2 ml BID IV FLUSH 06/18/17 21:00 06/22/17 21:29 (Tears Naturale Opth Soln) 1 drop TID EACH EYE 06/18/17 18:00 06/20/17 17:19 (Zofran Inj) 4 mg Q6H PRN IV PUSH 06/18/17 13:15 (Albuterol Neb) 2.5 mg Q2HR NEB PRN INH 06/18/17 13:15 Miscellaneous Information 1 Q361D XX 06/18/17 13:15 06/18/17 20:53 (Chlorhexidine 2% Cloth) 3 pack Taper DAILY@04 TOP 06/19/17 04:00 06/15/18 03:59 06/22/17 04:09 (Chlorhexidine 2% Cloth) 3 pack UNSCH PRN TOP 06/18/17 13:15 (Natasha-Colace) 1 tab BID PO 06/18/17 21:00 06/23/17 10:29 (Milk Of Magnesia Liq) 30 ml Q12H PRN PO 06/18/17 13:15 (Senokot) 17.2 mg Q12H PRN PO 06/18/17 13:15 (Dulcolax Supp) 10 mg DAILY PRN RECTAL 06/18/17 13:15 (Lactulose Liq) 30 ml DAILY PRN PO 06/18/17 13:15 06/18/17 20:48 (Peridex 0.12% Liq) 15 ml BID@08,20 MT 06/18/17 20:00 06/20/17 20:23 Thiamine HCl 100 mg/Sodium Chloride 101 ml @ 101 mls/hr DAILY IV 06/19/17 09:00 06/22/17 10:02 (Folate) 1 mg DAILY PO 06/19/17 09:00 06/23/17 10:29 (Theragran) 1 tab DAILY PO 3/18/18 09:00 06/23/17 10:29 (Brethine Inj) 1 mg UNSCH PRN SQ 06/18/17 16:30 (NS Flush) DAILY IV FLUSH 06/18/17 17:00 06/23/17 09:00 (NS Flush) UNSCH PRN IV FLUSH 06/18/17 17:00 (Aspirin Chew) 81 mg DAILY CHEW 06/20/17 09:00 06/23/17 10:31 (Levemir Inj) 10 units BID SQ 06/20/17 21:00 06/23/17 10:30 (Lactulose Liq) 30 ml Q4H PO 06/20/17 13:00 06/22/17 21:24 (D50w (Vial) Inj) 50 ml UNSCH PRN IV PUSH 06/20/17 09:30 (Glucagon Inj) 1 mg UNSCH PRN OTHER 06/20/17 09:30 (NovoLIN R SUPPLEMENTAL SCALE) 1 Q4HR SQ 06/20/17 09:30 06/23/17 12:00 (Lopressor) 25 mg Q12HR PO 06/20/17 10:00 06/23/17 10:29 (Apresoline Inj) 10 mg Q6H PRN IV PUSH 06/20/17 10:00 06/22/17 10:42 Piperacillin Sod/ Tazobactam Sod 50 ml @ 100 mls/hr Q6H IV 06/21/17 14:00 06/23/17 10:28 (Pepcid Inj) 10 mg Q12HR IV PUSH 06/21/17 21:00 06/23/17 10:29 (Ativan Inj) 1 mg Q2H PRN IV PUSH 06/22/17 09:30 (Lovenox Inj) 40 mg Q24H SQ 06/22/17 11:00 06/23/17 10:30 Vital Signs / I&O Vital Signs Date Time Temp Pulse Resp B/P (MAP) Pulse Ox O2 Delivery O2 Flow Rate FiO2 06/23/17 12:00 98.3 83 18 100 06/23/17 08:00 98.6 81 18 184/104 (130) 97 06/23/17 04:00 98.5 82 20 165/89 (114) 95 06/23/17 00:00 98.8 88 20 176/94 (121) 96 06/22/17 20:00 87 06/22/17 18:00 98.5 96 22 176/97 (123) 99 06/22/17 16:00 98.3 95 24 126/73 (90) 97 06/22/17 16:00 95 I/O 06/22/17 06/22/17 06/22/17 06/23/17 06/23/17 06/23/17 07:00 15:00 23:00 07:00 15:00 23:00 Intake Total 530 ml 100 ml 480 ml Output Total 1075 ml 600 ml 1400 ml Balance -545 ml 100 ml -120 ml -1400 ml Intake Oral 480 ml 480 ml IV Total 50 ml 100 ml Output Urine Total 725 ml 600 ml 1400 ml Stool Total 350 ml # Voids 4 2 # Bowel Movements 3 2 Physical Exam GENERAL: In NAD SKIN: Warm and dry. HEAD: Normocephalic. EYES: No scleral icterus. No injection or drainage. NECK: Supple, trachea midline. No JVD or lymphadenopathy. CARDIOVASCULAR: Regular rate and rhythm without murmurs, gallops, or rubs. RESPIRATORY: Breath sounds equal bilaterally. No accessory muscle use. GASTROINTESTINAL: Abdomen soft, non-tender, nondistended. MUSCULOSKELETAL: No cyanosis, or edema. Laboratory Laboratory Tests Test 06/23/17 07:00 White Blood Count 8.9 TH/MM3 Red Blood Count 3.67 MIL/MM3 Hemoglobin 12.1 GM/DL Hematocrit 34.9 % Mean Corpuscular Volume 95.1 FL Mean Corpuscular Hemoglobin 32.9 PG Mean Corpuscular Hemoglobin Concent 34.6 % Red Cell Distribution Width 13.1 % Platelet Count 141 TH/MM3 Mean Platelet Volume 8.9 FL Neutrophils (%) (Auto) 75.3 % Lymphocytes (%) (Auto) 11.3 % Monocytes (%) (Auto) 12.3 % Eosinophils (%) (Auto) 0.6 % Basophils (%) (Auto) 0.5 % Neutrophils # (Auto) 6.7 TH/MM3 Lymphocytes # (Auto) 1.0 TH/MM3 Monocytes # (Auto) 1.1 TH/MM3 Eosinophils # (Auto) 0.1 TH/MM3 Basophils # (Auto) 0.0 TH/MM3 CBC Comment AUTO DIFF Differential Comment AUTO DIFF CONFIRMED Platelet Estimate LOW Platelet Morphology Comment NORMAL Hematology Comments Blood Urea Nitrogen 19 MG/DL Creatinine 1.33 MG/DL Random Glucose 233 MG/DL Total Protein 6.2 GM/DL Albumin 2.6 GM/DL Calcium Level 8.3 MG/DL Phosphorus Level 3.4 MG/DL Magnesium Level 2.3 MG/DL Alkaline Phosphatase 171 U/L Aspartate Amino Transf (AST/SGOT) 66 U/L Alanine Aminotransferase (ALT/SGPT) 80 U/L Total Bilirubin 0.7 MG/DL Sodium Level 144 MEQ/L Potassium Level 4.9 MEQ/L Chloride Level 111 MEQ/L Carbon Dioxide Level 21.2 MEQ/L Anion Gap 12 MEQ/L Estimat Glomerular Filtration Rate 55 ML/MIN Assessment and Plan Problem List: (1) Respiratory failure ICD Codes: J96.90 - Respiratory failure, unspecified, unspecified whether with hypoxia or hypercapnia Status: Acute (2) Elevated troponin ICD Codes: R74.8 - Abnormal levels of other serum enzymes (3) Sepsis ICD Codes: A41.9 - Sepsis, unspecified organism Status: Acute (4) DKA (diabetic ketoacidoses) ICD Codes: E13.10 - Other specified diabetes mellitus with ketoacidosis without coma Status: Acute (5) Acute metabolic encephalopathy ICD Codes: G93.41 - Metabolic encephalopathy (6) Acute kidney injury ICD Codes: N17.9 - Acute kidney failure, unspecified (7) ETOH abuse ICD Codes: F10.10 - Alcohol abuse, uncomplicated Assessment and Plan Remains stable from cardiac standpoint. Echo with nl LV fx. Rhythm remains stable. Increase activity, PT. Counseled again to quit drinking ETOH. Anticipate discharge soon. Will need to follow up with physicians in [place]. Problem Qualifiers (1) Respiratory failure: Qualified Codes: J96.00 - Acute respiratory failure, unspecified whether with hypoxia or hypercapnia (2) Sepsis: Qualified Codes: A41.9 - Sepsis, unspecified organism (3) DKA (diabetic ketoacidoses): Qualified Codes: E10.11 - Type 1 diabetes mellitus with ketoacidosis with coma Eros Doan MD Jun 23, 2017 13:35
--- NOTE | 2017-06-23 14:25 | HHI.PR ---
Subjective Remarks awake and alert no complains seen with family at bedside known diabetic- insulin requiring on Lantus and Novolog admits to non compliance admits to alcohol use Objective Vitals Vital Signs Date Time Temp Pulse Resp B/P (MAP) Pulse Ox O2 Delivery O2 Flow Rate FiO2 06/23/17 12:00 98.3 83 18 100 06/23/17 08:00 98.6 81 18 184/104 (130) 97 06/23/17 04:00 98.5 82 20 165/89 (114) 95 06/23/17 00:00 98.8 88 20 176/94 (121) 96 06/22/17 20:00 87 06/22/17 18:00 98.5 96 22 176/97 (123) 99 06/22/17 16:00 98.3 95 24 126/73 (90) 97 06/22/17 16:00 95 I/O 06/22/17 06/22/17 06/22/17 06/23/17 06/23/17 06/23/17 07:00 15:00 23:00 07:00 15:00 23:00 Intake Total 530 ml 100 ml 480 ml Output Total 1075 ml 600 ml 1400 ml Balance -545 ml 100 ml -120 ml -1400 ml Intake Oral 480 ml 480 ml IV Total 50 ml 100 ml Output Urine Total 725 ml 600 ml 1400 ml Stool Total 350 ml # Voids 4 2 # Bowel Movements 3 2 Result Diagram: 06/23/17 0700 06/23/17 0700 Imaging Last Impressions Chest X-Ray 06/20/17 0600 Signed Impressions: Service Date/Time: Tuesday, June 20, 2017 05:23 - CONCLUSION: The lungs are clear. Beltran Bee MD Abdomen/Pelvis CT 06/20/17 0000 Signed Impressions: Service Date/Time: Tuesday, June 20, 2017 15:58 - CONCLUSION: 1. Unremarkable unenhanced CT appearance of the pancreas. No gross peripancreatic inflammatory change, pancreatic ductal dilatation or peripancreatic fluid collections. Please note that CT examination is not sensitive for acute uncomplicated pancreatitis , particularly without IV contrast. 2. Trace bilateral pleural effusions with minimal bibasilar consolidation, likely atelectasis. 3. Very trace free fluid along the inferior margin of the liver. 4. Ancillary findings include colonic diverticulosis, left renal cyst and degenerative spondylosis of the lumbar spine. Monroe Figueroa MD Head CT 06/18/17 1217 Signed Impressions: Service Date/Time: Sunday, June 18, 2017 12:58 - CONCLUSION: 1. No acute intracranial abnormality. Kushal Aggarwal MD Liver Ultrasound 06/18/17 0000 Signed Impressions: Service Date/Time: Sunday, June 18, 2017 13:50 - CONCLUSION: The liver is normal in size and echogenicity. No evidence of mass. There are large but benign-appearing left renal cyst present.. Elizabeth Javier MD Objective Remarks awake and alert oriented x 3 anicteric lungs clear regular rhythm abdomensoft, nontender extremities no edema- good peripheral pulses neuro exam -unremarkable Date of Insertion: Jun 18, 2017 Line: Central Venous Catheter Side: Left Location: Internal, Jugular A/P Problem List: (1) Acute respiratory failure ICD Code: J96.00 - Acute respiratory failure, unspecified whether with hypoxia or hypercapnia (2) Thrombocytosis ICD Code: D47.3 - Essential (hemorrhagic) thrombocythemia (3) Macrocytosis ICD Code: D75.89 - Other specified diseases of blood and blood-forming organs (4) Increased ammonia level ICD Code: R79.89 - Other specified abnormal findings of blood chemistry (5) Leukocytosis ICD Code: D72.829 - Elevated white blood cell count, unspecified (6) Glycosuria ICD Code: R81 - Glycosuria (7) Acute metabolic encephalopathy ICD Code: G93.41 - Metabolic encephalopathy (8) Cystitis ICD Code: N30.90 - Cystitis, unspecified without hematuria (9) Acute kidney injury ICD Code: N17.9 - Acute kidney failure, unspecified (10) Hyperkalemia ICD Code: E87.5 - Hyperkalemia (11) Hyponatremia ICD Code: E87.1 - Hypo-osmolality and hyponatremia (12) Hyperglycemia due to type 2 diabetes mellitus ICD Code: E11.65 - Type 2 diabetes mellitus with hyperglycemia Assessment and Plan Metabolic encephalopathy secondary to DKA- MS improved very non compliant with diet - reinforced diabetes education and compliance - increase levemir to 15 units bid with Novolog 8 units tid History of hypertension- some elevated readings Elevated troponin likely type II non-STEMI due to demand ischemia Lopressor 25mg Q12 monitor HR and BP keep MAP>65mmHg Cards is following- Dr. Doan. Echo showed EF 55-60% On ASA 81mg daily, ADd CCB- procardia 30 mg XL for beter control may eventually benefit from NETTA- not known with recent STEPHANIE S/P Acute hypoxemic respiratory failure- resolved Increase ambulation Hyperammonemia Elevated Lipase level. improved DC Lactulose. Liver ultrasound revealed no acute finding. Hepatitis panel negative. Monitor Lipase level- now within normal CT abd/pelvis:. No gross peripancreatic inflammatory change, pancreatic ductal dilatation or peripancreatic fluid collections, colonic diverticulosis, left renal cyst. Hypokalemia/hypophosphatemia Electrolyte replacement per protocol Acute kidney injury Hypernatremia Monitor renal function, I/O's, avoid nephrotoxins. Electrolytes replacement as needed Renal function is improving with Cr: 1.5 today on 1/2 NS@84ml/hr continue fluids Leukocytosis neutrophil predominant Normocytic anemia Cystitis some reactive leukocytosis from stress On piperacillin/tazobactam monitor for signs of infections ( Fever, WBC) Received 1 dose of vancomycin ED Sputum --beta strep Blood cultures Influenza screening, strep pneumonia and Legionella urinary Ag all negative change to po Levaquin chronic alcohol use - Librium 25 mg po tid -GI -famotidine -DVT -SCD.. Screen is negative start Lovenox 40 mg subcu daily plan for DC tomorrow- going back to [place] Problem Qualifiers (1) Acute respiratory failure: Qualified Codes: J96.00 - Acute respiratory failure, unspecified whether with hypoxia or hypercapnia (2) Leukocytosis: Qualified Codes: D72.828 - Other elevated white blood cell count (3) Hyperglycemia due to type 2 diabetes mellitus: Qualified Codes: E11.65 - Type 2 diabetes mellitus with hyperglycemia Bulmaro Welsh MD Jun 23, 2017 14:25
[2017-06-23] MEDS ORDERED: chlordiazePOXIDE 25 MG CAP PO PRN (14:45)
[2017-06-23 16:00] VITALS: BP 173/85; PULSE 84; RESP 18; TEMP 98.7; O2SAT 96
[2017-06-23] MEDS: SODIUM CHLOR 0.45% 1000 ML INJ 1,000 ML IV SCH (16:11)
[2017-06-23] MEDS: LEVOFLOXACIN 500 MG TAB PO SCH (16:12)
[2017-06-23] MEDS: INSULIN HUMAN REGULAR 1,000 UNITS/10 ML VIAL SQ SCH (16:13)
[2017-06-23] MEDS: NIFEdipine 30 MG SUSTAINED RELEASE TAB PO SCH (17:36)
[2017-06-23 20:03] VITALS: PULSE 82
[2017-06-24] VITALS: BP 125/72; PULSE 81; RESP 18; TEMP 98.8; O2SAT 94
[2017-06-24 00:40] VITALS: PULSE 70
[2017-06-24 04:00] VITALS: BP 140/74; PULSE 74; PULSE 76; RESP 18; TEMP 98.2; O2SAT 96
[2017-06-24] MEDS: INSULIN NovoLIN REGULAR SUPPLEMENTAL SCALE SQ SCH ×3 (04:00→09:33)
[2017-06-24] MEDS: SODIUM CHLOR 0.45% 1000 ML INJ 1,000 ML IV SCH (04:20)
--- NOTE | 2017-06-24 07:37 | HHI.PR ---
Subjective Remarks awake and alert no complains no nausea or vomiting Objective Vitals Vital Signs Date Time Temp Pulse Resp B/P (MAP) Pulse Ox O2 Delivery O2 Flow Rate FiO2 06/24/17 04:00 98.2 76 18 140/74 (96) 96 06/24/17 04:00 74 06/24/17 00:40 70 06/24/17 00:00 98.8 81 18 125/72 (89) 94 06/23/17 20:03 82 06/23/17 16:00 98.7 84 18 173/85 (114) 96 06/23/17 12:00 98.3 83 18 168/87 (114) 100 06/23/17 08:00 98.6 81 18 184/104 (130) 97 I/O 06/23/17 06/23/17 06/23/17 06/24/17 06/24/17 06/24/17 07:00 15:00 23:00 07:00 15:00 23:00 Intake Total 1500 ml Output Total 1400 ml 2500 ml 1300 ml Balance -1400 ml -1000 ml -1300 ml Intake Oral 1500 ml Output Urine Total 1400 ml 2500 ml 1300 ml # Bowel Movements 2 0 Result Diagram: 06/23/17 0700 06/23/17 0700 Imaging Last Impressions Chest X-Ray 06/20/17 0600 Signed Impressions: Service Date/Time: Tuesday, June 20, 2017 05:23 - CONCLUSION: The lungs are clear. Beltran Bee MD Abdomen/Pelvis CT 06/20/17 0000 Signed Impressions: Service Date/Time: Tuesday, June 20, 2017 15:58 - CONCLUSION: 1. Unremarkable unenhanced CT appearance of the pancreas. No gross peripancreatic inflammatory change, pancreatic ductal dilatation or peripancreatic fluid collections. Please note that CT examination is not sensitive for acute uncomplicated pancreatitis , particularly without IV contrast. 2. Trace bilateral pleural effusions with minimal bibasilar consolidation, likely atelectasis. 3. Very trace free fluid along the inferior margin of the liver. 4. Ancillary findings include colonic diverticulosis, left renal cyst and degenerative spondylosis of the lumbar spine. Monroe Figueroa MD Head CT 06/18/17 1217 Signed Impressions: Service Date/Time: Sunday, June 18, 2017 12:58 - CONCLUSION: 1. No acute intracranial abnormality. Kushal Aggarwal MD Liver Ultrasound 06/18/17 0000 Signed Impressions: Service Date/Time: Sunday, June 18, 2017 13:50 - CONCLUSION: The liver is normal in size and echogenicity. No evidence of mass. There are large but benign-appearing left renal cyst present.. Elizabeth Javier MD Objective Remarks awake and alert oriented x 3 anicteric lungs clear regular rhythm abdomen soft, nontender extremities no edema- good peripheral pulses neuro exam -unremarkable neuro exam - unremarkable Date of Insertion: Jun 18, 2017 Line: Central Venous Catheter Side: Left Location: Internal, Jugular A/P Problem List: (1) Acute respiratory failure ICD Code: J96.00 - Acute respiratory failure, unspecified whether with hypoxia or hypercapnia (2) Thrombocytosis ICD Code: D47.3 - Essential (hemorrhagic) thrombocythemia (3) Macrocytosis ICD Code: D75.89 - Other specified diseases of blood and blood-forming organs (4) Increased ammonia level ICD Code: R79.89 - Other specified abnormal findings of blood chemistry (5) Leukocytosis ICD Code: D72.829 - Elevated white blood cell count, unspecified (6) Glycosuria ICD Code: R81 - Glycosuria (7) Acute metabolic encephalopathy ICD Code: G93.41 - Metabolic encephalopathy (8) Cystitis ICD Code: N30.90 - Cystitis, unspecified without hematuria (9) Acute kidney injury ICD Code: N17.9 - Acute kidney failure, unspecified (10) Hyperkalemia ICD Code: E87.5 - Hyperkalemia (11) Hyponatremia ICD Code: E87.1 - Hypo-osmolality and hyponatremia (12) Hyperglycemia due to type 2 diabetes mellitus ICD Code: E11.65 - Type 2 diabetes mellitus with hyperglycemia Assessment and Plan Metabolic encephalopathy secondary to DKA- MS improved very non compliant with diet - reinforced diabetes education and compliance - increased levemir to 15 units bid with Novolog 8 units tid - patient has own home regimen- will resume when he gets home- he refused some of insulin coverage History of hypertension- BP readings improved Elevated troponin likely type II non-STEMI due to demand ischemia Lopressor 25mg Q12 monitor HR and BP keep MAP>65mmHg Cards is following- Dr. Doan. Echo showed EF 55-60% On ASA 81mg daily, ADd CCB- procardia 30 mg XL for beter control may eventually benefit from NETTA- not now with recent STEPHANIE S/P Acute hypoxemic respiratory failure- resolved Increase ambulation Hyperammonemia Elevated Lipase level. - asymptomatic improved DC Lactulose. Liver ultrasound revealed no acute finding. Hepatitis panel negative. Monitor Lipase level- now within normal CT abd/pelvis:. No gross peripancreatic inflammatory change, pancreatic ductal dilatation or peripancreatic fluid collections, colonic diverticulosis, left renal cyst. Hypokalemia/hypophosphatemia improved Acute kidney injury renal functions imroved- likely with underlying CKI from DM nephropathy Hypernatremia- improved Monitor renal function, I/O's, avoid nephrotoxins. Electrolytes replacement as needed Renal function is improving with Cr: 1.5 today ff BMP with PCP Leukocytosis neutrophil predominant Normocytic anemia Cystitis some reactive leukocytosis from stress On piperacillin/tazobactam monitor for signs of infections ( Fever, WBC) Received 1 dose of vancomycin ED Sputum --beta strep Blood cultures Influenza screening, strep pneumonia and Legionella urinary Ag all negative change to po Levaquin x 2 days then DC chronic alcohol use- counselled - Librium 25 mg po tid x 2 days then DC -GI -famotidine -DVT -SCD.. Lovenox 40 mg subcu daily DC today OP ff up with PCP in [place] Problem Qualifiers (1) Acute respiratory failure: Qualified Codes: J96.00 - Acute respiratory failure, unspecified whether with hypoxia or hypercapnia (2) Leukocytosis: Qualified Codes: D72.828 - Other elevated white blood cell count (3) Hyperglycemia due to type 2 diabetes mellitus: Qualified Codes: E11.65 - Type 2 diabetes mellitus with hyperglycemia Bulmaro Welsh MD Jun 24, 2017 07:37
[2017-06-24] MEDS ORDERED: ASPI81 CHEW (07:42)
[2017-06-24] MEDS ORDERED: METO25TA3 PO (07:42)
[2017-06-24] MEDS ORDERED: THERTAB15 PO (07:42)
[2017-06-24] MEDS ORDERED: CHLO25CA9 PO (07:42)
[2017-06-24] MEDS ORDERED: LEVA500T33 PO (07:42)
[2017-06-24] MEDS ORDERED: NIFE30TA8 PO (07:42)
[2017-06-24] MEDS ORDERED: NOVOINJ2 SQ (07:58)
[2017-06-24] MEDS ORDERED: LANTUS2P SQ (07:58)
[2017-06-24 08:00] VITALS: BP 161/87; PULSE 78; RESP 18; TEMP 97.9; O2SAT 96
[2017-06-24] MEDS ORDERED: INSULIN ASPAR PROT 70/30 1,000 UNITS/10 ML VIAL SQ SCH (09:00)
[2017-06-24] MEDS: ARTIFICIAL TEARS OPTH SOLN 15 ML BTL EACH EYE SCH (09:30)
[2017-06-24] MEDS: LEVOFLOXACIN 500 MG TAB PO SCH (09:31)
[2017-06-24] MEDS: DOCUSATE SODIUM 50 MG/SENNA 8.6 MG TAB PO SCH (09:31)
[2017-06-24] MEDS: METOPROLOL TARTRATE 25 MG TAB PO SCH (09:31)
[2017-06-24] MEDS: ENOXAPARIN SODIUM 40 MG/0.4 ML SYRINGE SQ SCH (09:31)
[2017-06-24] MEDS: MULTIVITAMIN TAB PO SCH (09:31)
[2017-06-24] MEDS: ASPIRIN 81 MG CHEW TAB CHEW SCH (09:31)
[2017-06-24] MEDS: INSULIN HUMAN REGULAR 1,000 UNITS/10 ML VIAL SQ SCH (09:32)
[2017-06-24] MEDS: FOLIC ACID 1 MG TAB PO SCH (09:32)
[2017-06-24] MEDS: NIFEdipine 30 MG SUSTAINED RELEASE TAB PO SCH (09:32)
[2017-06-24] MEDS: INSULIN DETEMIR 100 UNITS/ML VIAL SQ SCH (09:32)
[2017-06-24] MEDS: SODIUM CHLORIDE 0.9% FLUSH 10 ML FLUSH IV FLUSH SCH (09:35)
[2017-06-24] MEDS ORDERED: INSULIN DETEMIR 100 UNITS/ML VIAL SQ SCH (21:00)
--- NOTE | 2017-06-27 08:39 | HHI.DS ---
Discharge Summary Admission Date Jun 18, 2017 at 12:39 Discharge Date: Jun 24, 2017 Admitting Diagnosis DKA, metabolic acidosis, metabolic encephalopathy (1) Acute respiratory failure ICD Code: J96.00 - Acute respiratory failure, unspecified whether with hypoxia or hypercapnia Diagnosis: Principal (2) DKA (diabetic ketoacidoses) ICD Code: E13.10 - Other specified diabetes mellitus with ketoacidosis without coma Diagnosis: Principal (3) Thrombocytosis ICD Code: D47.3 - Essential (hemorrhagic) thrombocythemia Diagnosis: Secondary (4) Acute metabolic encephalopathy ICD Code: G93.41 - Metabolic encephalopathy Diagnosis: Principal (5) Macrocytosis ICD Code: D75.89 - Other specified diseases of blood and blood-forming organs (6) Increased ammonia level ICD Code: R79.89 - Other specified abnormal findings of blood chemistry Diagnosis: Secondary (7) Leukocytosis ICD Code: D72.829 - Elevated white blood cell count, unspecified Diagnosis: Secondary (8) Acute kidney injury ICD Code: N17.9 - Acute kidney failure, unspecified Diagnosis: Secondary (9) Hyperkalemia ICD Code: E87.5 - Hyperkalemia (10) Hyponatremia ICD Code: E87.1 - Hypo-osmolality and hyponatremia (11) Hyperglycemia due to type 2 diabetes mellitus ICD Code: E11.65 - Type 2 diabetes mellitus with hyperglycemia Procedures 06/18- central line placement, endotracheal intubation Brief History - From Admission 62-year-old male. Date of admission 06/18/2017. Past medical history includes diabetes according to friend per ER physician who is currently unavailable. This individual presented to the emergency room by EMS after he was found unresponsive this morning by his friend in the hotel room. When EMS arrived and checked his blood sugar the meter read high. They brought him unresponsive with GCS of 3. Vital signs were otherwise stable. Patient was in no condition to give any meaningful history. The bedside blood sugar in the emergency room read high as well. There is no family or friend currently with the patient. He was last seen normal last night. Patient received 20 mg etomidate and 100 mg succinylcholine was extubated with a 7.[address] brain revealed no acute intracranial findings. His white blood cell count is 41,000. He has a macrocytosis on his lab draws ammonia levels 161. Received vancomycin and piperacillin/tazobactam in the emergency department. He was started on lactulose 30 cc 4 times daily. EKG revealed normal sinus rhythm 83. Incomplete right bundle branch block. Troponin is currently pending. Creatinine was 2.4. Potassium is 6.3. Sodium was 127. Troponin 0 0.04. TSH 1.19. Patient received 10 mg insulin R and started on a drip currently 8 units an hour. 3 L normal saline wide open. Currently normal saline at 250 cc now. We are asked to admit. CBC/BMP: 06/23/17 0700 06/23/17 0700 Imaging Last Impressions Chest X-Ray 06/20/17 0600 Signed Impressions: Service Date/Time: Tuesday, June 20, 2017 05:23 - CONCLUSION: The lungs are clear. Beltran Bee MD Abdomen/Pelvis CT 06/20/17 0000 Signed Impressions: Service Date/Time: Tuesday, June 20, 2017 15:58 - CONCLUSION: 1. Unremarkable unenhanced CT appearance of the pancreas. No gross peripancreatic inflammatory change, pancreatic ductal dilatation or peripancreatic fluid collections. Please note that CT examination is not sensitive for acute uncomplicated pancreatitis , particularly without IV contrast. 2. Trace bilateral pleural effusions with minimal bibasilar consolidation, likely atelectasis. 3. Very trace free fluid along the inferior margin of the liver. 4. Ancillary findings include colonic diverticulosis, left renal cyst and degenerative spondylosis of the lumbar spine. Monroe Figueroa MD Head CT 06/18/17 1217 Signed Impressions: Service Date/Time: Sunday, June 18, 2017 12:58 - CONCLUSION: 1. No acute intracranial abnormality. Kushal Aggarwal MD Liver Ultrasound 06/18/17 0000 Signed Impressions: Service Date/Time: Sunday, June 18, 2017 13:50 - CONCLUSION: The liver is normal in size and echogenicity. No evidence of mass. There are large but benign-appearing left renal cyst present.. Elizabeth Javier MD PE at Discharge awake and alert oriented x 3 anicteric lungs clear regular rhythm abdomen soft, nontender extremities no edema- good peripheral pulses neuro exam -unremarkable neuro exam - unremarkable Pt update on day of discharge awake and alert motivated with lifestyle changes Hospital Course Metabolic encephalopathy secondary to DKA- MS improved very non compliant with diet - reinforced diabetes education and compliance - increased levemir to 15 units bid with Novolog 8 units tid - patient has own home regimen- will resume when he gets home- he refused some of insulin coverage History of hypertension- BP readings improved Elevated troponin likely type II non-STEMI due to demand ischemia Lopressor 25mg Q12 monitor HR and BP keep MAP>65mmHg Cards is following- Dr. Doan. Echo showed EF 55-60% On ASA 81mg daily, ADd CCB- procardia 30 mg XL for beter control may eventually benefit from NETTA- not now with recent STEPHANIE S/P Acute hypoxemic respiratory failure- resolved Increase ambulation Hyperammonemia Elevated Lipase level. - asymptomatic improved DC Lactulose. Liver ultrasound revealed no acute finding. Hepatitis panel negative. Monitor Lipase level- now within normal CT abd/pelvis:. No gross peripancreatic inflammatory change, pancreatic ductal dilatation or peripancreatic fluid collections, colonic diverticulosis, left renal cyst. Hypokalemia/hypophosphatemia improved Acute kidney injury renal functions imroved- likely with underlying CKI from DM nephropathy Hypernatremia- improved Monitor renal function, I/O's, avoid nephrotoxins. Electrolytes replacement as needed Renal function is improving with Cr: 1.5 today ff BMP with PCP Leukocytosis neutrophil predominant Normocytic anemia Cystitis some reactive leukocytosis from stress On piperacillin/tazobactam monitor for signs of infections ( Fever, WBC) Received 1 dose of vancomycin ED Sputum --beta strep Blood cultures Influenza screening, strep pneumonia and Legionella urinary Ag all negative change to po Levaquin x 2 days then DC chronic alcohol use- counselled - Librium 25 mg po tid x 2 days then DC -GI -famotidine -DVT -SCD.. Lovenox 40 mg subcu daily DC today OP ff up with PCP in [place] Pt Condition on Discharge: Stable Discharge Disposition: Discharge Home Discharge Time: > 30 minutes Discharge Instructions DIET: Follow Instructions for: Heart Healthy Diet, Diabetic Diet Speech Therapy-Diet Recommends: Regular Activities you can perform: Weight Bearing as Xochilt Activities to Avoid: Strenuous Activity Follow up Referrals: PCP Follow-up - 06/27/17 with PCP New Orders: COMP MET PROF (CMP) - 06/27/17 New Medications: Aspirin (Tgt Aspirin) 81 Mg Chw 81 MG CHEW DAILY for CAD for 30 Days, EA Chlordiazepoxide HCl (Chlordiazepoxide HCl) 25 Mg Capsule 25 MG PO TID PRN for SEVERE ANXIETY OR AGITATION for 2 Days, #6 TAB Levofloxacin (Levaquin) 500 Mg Tablet 500 MG PO DAILY for CYS for 1 Day, #1 TAB Metoprolol Tartrate (Metoprolol Tartrate) 25 Mg Tab 25 MG PO Q12HR for HTN for 30 Days, TAB Multivitamin with Folic Acid (Thera Tablet) 400 Mcg Tablet 1 TAB PO DAILY for ETO for 30 Days, #30 TAB Nifedipine ER 24 HR (Nifedipine ER 24 HR) 30 Mg Tab 30 MG PO DAILY for HTN for 30 Days, #30 TAB Continued Medications: Insulin Aspart Protam-Asp 70-30 Inj (Novolog Mix 70-30 FlexPen Inj) 300 Unit/3 Ml Pen 12 UNITS SQ TID for Blood Sugar Management, #1 PEN 0 Refills Insulin Glargine Inj (Lantus Inj) 1,000 Unit/10 Ml Vial 40 UNITS SQ HS for Blood Sugar Management, VIAL 0 Refills Bulmaro Welsh MD Jun 27, 2017 08:39
== END 2017-06-24 12:00 | disposition home or self-care (01) | DRG 208 ==
LOC: NEPC 12:07 → NEDA 12:39 → HIMN 14:50 → HOCA 06-22 12:23
PROVIDERS: ADMIT Internal Medicine; ATTEND Internal Medicine
PROC: 5A1945Z Respiratory Ventilation, 24-96 Consecutive Hours (ICD-10-PCS; principal; 2017-06-18)
PROC: 04HY32Z Insertion of Monitoring Device into Lower Artery, Percutaneous Approach (ICD-10-PCS; 2017-06-18)
PROC: 0BH17EZ Insertion of Endotracheal Airway into Trachea, Via Natural or Artificial Opening (ICD-10-PCS; 2017-06-18)
PROC: 4A133B1 Monitoring of Arterial Pressure, Peripheral, Percutaneous Approach (ICD-10-PCS; 2017-06-18)
PROC: 4A133J1 Monitoring of Arterial Pulse, Peripheral, Percutaneous Approach (ICD-10-PCS; 2017-06-18)
PROC: 05HN33Z Insertion of Infusion Device into Left Internal Jugular Vein, Percutaneous Approach (ICD-10-PCS; 2017-06-18)
DX: J96.01 Acute respiratory failure with hypoxia (principal); I21.A1 Myocardial infarction type 2; E11.11 Type 2 diabetes mellitus with ketoacidosis with coma; G92 Toxic encephalopathy; N17.9 Acute kidney failure, unspecified; E72.20 Disorder of urea cycle metabolism, unspecified; E87.1 Hypo-osmolality and hyponatremia; E87.0 Hyperosmolality and hypernatremia; Z72.0 Tobacco use; D64.9 Anemia, unspecified; D72.828 Other elevated white blood cell count; D75.89 Other specified diseases of blood and blood-forming organs; N30.90 Cystitis, unspecified without hematuria; E87.5 Hyperkalemia; I45.10 Unspecified right bundle-branch block; E11.21 Type 2 diabetes mellitus with diabetic nephropathy; E11.65 Type 2 diabetes mellitus with hyperglycemia; L55.9 Sunburn, unspecified; I10 Essential (primary) hypertension; E83.39 Other disorders of phosphorus metabolism; F10.10 Alcohol abuse, uncomplicated; E87.6 Hypokalemia; Z79.4 Long term (current) use of insulin; I25.2 Old myocardial infarction; Z91.19 Patient's noncompliance with other medical treatment and regimen; Z91.11 Patient's noncompliance with dietary regimen
CPT/HCPCS: 31500; 36556; 36600; 70450; 71045; 74176; 76705; 76937; 80048; 80053; 80061; 80074; 80307; 81001; 82010; 82140; 82150; 82533; 82550; 82552; 82570; 82805; 82947; 82948; 83036; 83605; 83690; 83735; 84100; 84132; 84155; 84300; 84439; 84443; 84484; 85007; 85025; 85027; 85384; 85610; 85730; 86022; 86403; 87040; 87070; 87086; 87205; 87449; 87641; 87804; 93005; 93306; 94002; 94003; 94150; 94640; 94664; 95819; J0330; J0360; J0610; J1630; J1644; J1650; J1815; J1817; J2250; J2370; J2543; J3010; J3370; J3411; J3480; J7030; J7050; J7060; J7120